=== PATIENT | female | born 1955 | race Caucasian/White ===

== ENCOUNTER 2016-07-25 10:53 | Inpatient (IN) | payer BC ==
[2016-07-25] MEDS ORDERED: Sodium Chloride 0.9% 10 ML Syringe FLUSH PRN (11:02)
[2016-07-25] MEDS ORDERED: Acetaminophen 325 MG Tab PO PRN (11:02)
[2016-07-25] MEDS ORDERED: Nitroglycerin 0.4 MG Tab.SL SL PRN (11:06)
[2016-07-25] MEDS ORDERED: methylPREDNISolone Sod Succ 125 MG in Sodium Chloride 0.9% 100 ML IV SCH (11:15)
[2016-07-25 11:36] LABS: BASOPHILS PERCENT AUTO 0.2 % (0.2-1.2); EOSINOPHILS PERCENT AUTO 0.3 % (0.0-4.0); HEMOGLOBIN 14.3 g/dL (12.0-16.0); LYMPHOCYTES PERCENT AUTO 11.1 % (25.0-50.0); MEAN CORPUSCULAR HEMOGLOBIN 29.2 pg (26.0-32.0); MEAN CORPUSCULAR HGB CONC 32.5 g/dL (32.0-36.0); MEAN CORPUSCULAR VOLUME 89.8 fL (78.0-93.0); MONOCYTES PERCENT AUTO 11.2 % (2.0-11.0); NEUTROPHILS PERCENT AUTO 77.2 % (50.0-80.0); RDW CV 16.5 % (10.0-15.0)
[2016-07-25] MEDS: Albuterol/Ipratropium 3.0-0.5 MG/3 ML Neb Soln NEB PRN ×3 (11:45→19:55)
[2016-07-25] MEDS: methylPREDNISolone Sodium Succinate 125 MG/2 ML SDV IVPUSH SCH ×2 (11:45→20:02)
[2016-07-25 12:06] LABS: A/G RATIO 0.93; ALBUMIN 3.7 g/dL (3.4-5.0); ALKALINE PHOSPHATASE 118 U/L (46-116); BILIRUBIN TOTAL 0.5 mg/dL (0.2-1.0); CALCIUM 8.5 mg/dL (8.5-10.1); CHLORIDE,CL 96 mmol/L (98-107); CORRECTED CALCIUM 8.74 mg/dL (8.5-10.1); CREATININE 0.7 mg/dL (0.55-1.02); ESTIMATED GFR > 60; GLUCOSE RANDOM 119 mg/dL (74-106)
[2016-07-25 12:08] LABS: CKMB 1.1 ng/mL (0.0-3.6)
--- NOTE | 2016-07-25 13:18 | PCM.HP ---
H&P History of Present Illness - General Date of Service: 07/25/16 Admit Problem/Dx: Admission Diagnosis/Problem Admission Diagnosis/Problem Congestive heart failure Source of Information: Patient History Limitations: Reports: No limitations - History of Present Illness Initial Comments - Free Text/Narative: 61 year old female presents to clinic with complaints of shortness of breath. States symptoms started 3 days ago - progressively worsening. Has a slight cough. Unaware of fevers but has been chilled. Cough is non-productive. Denies any edema. Onset of Symptoms: Reports: gradual Symptom Onset Date: 07/21/16 - Related Data Allergies/Adverse Reactions: Allergies Allergy/AdvReac Type Severity Reaction Status Date / Time codeine AdvReac Vomiting Verified 07/25/16 11:08 bandaids Allergy Rash Uncoded 07/25/16 11:08 Home Medications: Home Meds Albuterol [Ventolin HFA] 2 puff INH Q4HR PRN 08/16/13 [History] Furosemide 40 mg PO DAILY 08/16/13 [History] Potassium Chloride [Klor-Con 10] 10 meq PO DAILY 08/16/13 [History] Aspirin [Halfprin] 81 mg PO DAILY #1 tab.ec 08/20/13 [Rx] Budesonide [Pulmicort] 0.5 mg NEB BIDRT #60 neb 08/20/13 [Rx] Carvedilol 25 mg PO BID #1 08/20/13 [Rx] Simvastatin [Zocor] 40 mg PO BEDTIME #1 tablet 08/20/13 [Rx] FLUoxetine [PROzac] 40 mg PO DAILY 06/26/15 [History] Omeprazole [Prilosec] 20 mg PO DAILY 06/26/15 [History] Albuterol/Ipratropium [DuoNeb 3.0-0.5 MG/3 ML] 3 ml NEB Q4HRRT PRN 01/06/16 [ History] Lisinopril 40 mg PO DAILY 01/06/16 [History] Nitroglycerin [Nitrostat] 0.4 mg SL Q5M PRN 01/06/16 [History] Aclidinium [place] [Tudorza Pressair] 400 mcg IH BID 01/10/16 [History] Past Medical History HEENT History: Reports: None Cardiovascular History: Reports: CAD, Cardiomyopathy, Heart Failure, High cholesterol, Hypertension, [place] Respiratory History: Reports: COPD Other Respiratory History: pt uses home O2 at 1L [place] throughout day. 2L at night Gastrointestinal History: Reports: Other (see below) Other Gastrointestinal History: reports that she has been having bloody stools ( BRB) is scheduled for colonoscopy SundayJanuary 09 Genitourinary History: Reports: None [employer] History: Reports: None Musculoskeletal History: Reports: None Neurological History: Reports: None Psychiatric History: Reports: Depression Endocrine/Metabolic History: Reports: None Hematologic History: Other Hematologic History: hepatitis Immunologic History: Reports: None Oncologic (Cancer) History: Reports: None Dermatologic History: Reports: None - Infectious Disease History Infectious Disease History: Reports: Other (see below) Other Infectious Disease History: hx of hepatitis but does not know which one - Past Surgical History Head Surgeries/Procedures: Reports: None HEENT Surgical History: Reports: None Cardiovascular Surgical History: Reports: Other (see below) Other Cardiovascular Surgeries/Procedures: triple bipass 2004 Female Surgical History: Reports: Hysterectomy Endocrine Surgical History: Reports: None Neurological Surgical History: Reports: None Musculoskeletal Surgical History: Reports: None Oncologic Surgical History: Reports: None Dermatological Surgical History: Reports: None Social & Family History - Family History Family Medical History: Noncontributory - Tobacco Use Smoking Status *Q: Current Every Day Smoker Years of Tobacco use: 48 Packs/Tins Daily: 1 Second Hand Smoke Exposure: Yes - Alcohol Use Days Per Week of Alcohol Use: 7 Number of Drinks Per Day: 5 Total Drinks Per Week: 35 - Recreational Drug Use Recreational Drug Use: No - Living Situation & Occupation Living situation: Reports: Occupation: employed H&P Review of Systems - Review of Systems: Review Of Systems: See Below General: Reports: chills, weakness HEENT: Reports: no symptoms Pulmonary: Reports: shortness of breath, cough Cardiovascular: Reports: dyspnea on exertion. Denies: chest pain, syncope Gastrointestinal: Reports: No symptoms Genitourinary: Reports: no symptoms Musculoskeletal: Reports: no symptoms Skin: Reports: no symptoms Psychiatric: Reports: anxiety Neurological: Reports: no symptoms Hematologic/Lymphatic: Reports: no symptoms Immunologic: Reports: no symptoms Exam - Exam Exam: See Below - Vital Signs Vital Signs: Last Vital Signs Temp 36.3 C 07/25/16 11:07 Pulse 70 07/25/16 11:07 Resp 20 01/03/17 11:07 BP 127/73 07/25/16 11:07 Pulse Ox 94 L 07/25/16 11:07 Weight: 81.247 kg - Exam Quality Assessment: supplemental oxygen General: alert, oriented HEENT: Conjunctiva clear, EOMI Neck: supple Lungs: Decreased breath sounds, Rales, Wheezing Cardiovascular: regular rate, regular rhythm Abdomen: normal bowel sounds (Female) Exam: Deferred Extremities: edema (trace) Skin: dry Neuro Extensive - Mental Status: alert, oriented x3 Neuro Extensive - Motor, Sensory, Reflexes: CN II-XII intact Psychiatric: alert - Patient Data Lab Results last 24 hrs: Laboratory Results - last 24 hr 07/25/16 07/25/16 Range/Units 11:29 11:29 WBC 8.9 (4.0-10.0) x10^3/uL RBC 4.90 (4.00-5.50) x10^6/uL Hgb 14.3 (12.0-16.0) g/dL Hct 44.0 (33.0-47.0) % MCV 89.8 (78.0-93.0) fL MCH 29.2 (26.0-32.0) pg MCHC 32.5 (32.0-36.0) g/dL RDW Coeff of Cyndie 16.5 H (10.0-15.0) % Plt Count 207 (130-400) x10^3/uL Neut % (Auto) 77.2 (50.0-80.0) % Lymph % (Auto) 11.1 L (25.0-50.0) % [place] % (Auto) 11.2 H (2.0-11.0) % Eos % (Auto) 0.3 (0.0-4.0) % Baso % (Auto) 0.2 (0.2-1.2) % Sodium 138 (136-145) mmol/L Potassium 3.7 (3.5-5.1) mmol/L Chloride 96 L (98-107) mmol/L Carbon Dioxide 35 H (21-32) mmol/L BUN 6 L (7-18) mg/dL Creatinine 0.7 (0.55-1.02) mg/dL Est Cr Clr Drug Dosing 70.70 mL/min Estimated GFR (MDRD) > 60 Glucose 119 H (74-106) mg/dL Calcium 8.5 (8.5-10.1) mg/dL Corrected Calcium 8.74 (8.5-10.1) mg/dL Total Bilirubin 0.5 (0.2-1.0) mg/dL AST 21 (15-37) U/L ALT 28 (14-59) U/L Alkaline Phosphatase 118 H (46-116) U/L Creatine Kinase 84 (26-192) U/L Creatine Kinase Index 1.3 (0.0-4.0) % CK-MB (CK-2) 1.1 (0.0-3.6) ng/mL Total Protein 7.7 (6.4-8.2) g/dL Albumin 3.7 (3.4-5.0) g/dL Globulin 4.0 Albumin/Globulin Ratio 0.93 Result Diagrams: 07/25/16 11:29 07/25/16 11:29 *Q Meaningful Use (ADM) - VTE *Q VTE Criteria *Q: - Stroke *Q Stroke Criteria *Q: - AMI *Q AMI Criteria *Q: - Problem List (1) Weakness SNOMED Code(s): 47696086 ICD Code: R53.1 - WEAKNESS Status: Acute Current Visit: No (2) Congestive heart failure due to left ventricular systolic dysfunction SNOMED Code(s): 553465576 ICD Code: I50.20 - UNSPECIFIED SYSTOLIC (CONGESTIVE) HEART FAILURE Status: Acute Priority: High Current Visit: No (3) Depression SNOMED Code(s): 09772405 ICD Code: F32.9 - MAJOR DEPRESSIVE DISORDER, SINGLE EPISODE, UNSPECIFIED Status: Chronic Current Visit: No (4) HTN, Benign hypertension SNOMED Code(s): 63934479 ICD Code: I10 - ESSENTIAL (PRIMARY) HYPERTENSION Status: Chronic Current Visit: No Problem List Initiated/Reviewed/Updated: Yes Orders Last 24hrs: Active Orders 24 hr Category Date Time Status Admission Status [Patient Status] [ADT] Routine ADT 07/25/16 10:58 Active Intake and Output [RC] QSHIFT Care 07/25/16 11:03 Ordered Oxygen Therapy [RC] PRN Care 07/25/16 11:02 Ordered Pulse Oximetry [RC] PRN Care 07/25/16 11:04 Ordered VTE/DVT Education [RC] PER UNIT ROUTINE Care 07/25/16 11:02 Ordered Vital Signs [RC] Q4H Care 07/25/16 11:02 Ordered 2 Gram Sodium Diet [DIET] Diet 07/25/16 Lunch Ordered Acetaminophen [Tylenol] Med 07/25/16 11:02 Ordered 650 mg PO Q4H PRN Aclidinium [place] [Tudorza Pressair] Med 07/25/16 20:00 Ordered 400 mcg IH BID Albuterol/Ipratropium [DuoNeb 3.0-0.5 MG/3 ML] Med 07/25/16 11:06 Ordered 3 ml NEB Q4HRRT PRN Aspirin [Halfprin] Med 07/26/16 08:00 Ordered 81 mg PO DAILY Budesonide [Pulmicort] Med 07/25/16 20:00 Ordered 0.5 mg NEB BIDRT Carvedilol [Coreg] Med 07/25/16 20:00 Ordered 25 mg PO BID FLUoxetine [PROzac] Med 07/26/16 08:00 Ordered 40 mg PO DAILY Furosemide [Lasix] Med 07/25/16 20:00 Ordered 40 mg IVPUSH Q12HR LORazepam [Ativan] Med 07/25/16 20:00 Ordered 3 mg PO BEDTIME Lisinopril [Lisinopril] Med 07/26/16 08:00 Ordered 20 mg PO DAILY Nitroglycerin [Nitrostat] Med 07/25/16 11:06 Ordered 0.4 mg SL Q5M PRN Omeprazole Med 07/26/16 08:00 Ordered 20 mg PO DAILY Simvastatin [Zocor] Med 07/25/16 20:00 Ordered 40 mg PO BEDTIME Sodium Chloride 0.9% [Saline Flush] Med 07/25/16 11:02 Ordered 10 ml FLUSH ASDIRECTED PRN methylPREDNISolone Sod Succ [Solu-MEDROL] Med 07/25/16 12:00 Active 125 mg IVPUSH Q8H Saline Lock Insert [OM.PC] Routine Oth 07/25/16 11:02 Ordered Resuscitation Status Routine Resus Stat 07/25/16 11:02 Ordered Medication Orders Acetaminophen (Tylenol) 650 mg PO Q4H PRN PRN Reason: Pain (Mild 1-3)/fever Albuterol/Ipratropium (Duoneb 3.0-0.5 Mg/3 Ml) 3 ml NEB Q4HRRT PRN PRN Reason: Shortness of Breath Last Admin: 07/25/16 11:45 Dose: 3 ml Aspirin (Halfprin) 81 mg PO DAILY [facility] Budesonide (Pulmicort) 0.5 mg NEB BIDRT [facility] Carvedilol (Coreg) 25 mg PO BID [facility] Fluoxetine HCl (Prozac) 40 mg PO DAILY [facility] Furosemide (Lasix) 40 mg IVPUSH Q12HR [facility] Lisinopril (Prinivil) 20 mg PO DAILY [facility] Lorazepam (Ativan) 3 mg PO BEDTIME [facility] Methylprednisolone Sodium Succinate (Solu-Medrol) 125 mg IVPUSH Q8H [facility] Last Admin: 07/25/16 11:45 Dose: 125 mg Nitroglycerin (Nitrostat) 0.4 mg SL Q5M PRN PRN Reason: Chest Pain Aclidinium [place] [ Tudorza Pressair] 400 Mcg 0 mcg IH BID [facility] Omeprazole (Omeprazole) 20 mg PO DAILY@0700 [facility] Simvastatin (Zocor) 40 mg PO BEDTIME [facility] Sodium Chloride (Saline Flush) 10 ml FLUSH ASDIRECTED PRN PRN Reason: Keep Vein Open Assessment/Plan Comment:: 1. Acute exacerbation of chronic systolic heart failure 2. Severe COPD - Oxygen dependent 3. Weakness 4. Anxiety with chronic insomnia Plan: Pt will be admitted to acute care. IV diuretics ordered. IV steroids ordered as well. Code 1. Therapy will be consulted
[2016-07-25] MEDS: Nicotine 21 MG/24 Hr Patch TRDERM SCH (17:51)
[2016-07-25] MEDS: Simvastatin 40 MG Tab PO SCH (20:01)
[2016-07-25] MEDS: Carvedilol 25 MG Tab PO SCH (20:01)
[2016-07-25] MEDS: Furosemide 40 MG/4 ML VIAL IVPUSH SCH (20:02)
[2016-07-25] MEDS: Budesonide 0.5 MG/2 ML Neb Susp NEB SCH (20:02)
[2016-07-25] MEDS: Aclidinium Bromide [Tudorza Pressair] 400 MCG IH SCH (20:03)
[2016-07-25] MEDS: LORazepam 1 MG Tab PO SCH (20:03)
[2016-07-26] MEDS: Albuterol/Ipratropium 3.0-0.5 MG/3 ML Neb Soln NEB PRN ×4 (01:56→14:34)
[2016-07-26] MEDS: methylPREDNISolone Sodium Succinate 125 MG/2 ML SDV IVPUSH SCH ×3 (04:21→19:46)
[2016-07-26] MEDS: Budesonide 0.5 MG/2 ML Neb Susp NEB SCH ×2 (07:11→19:46)
[2016-07-26] MEDS: Omeprazole 20 MG Cap.CR PO SCH (07:36)
[2016-07-26] MEDS: Furosemide 40 MG/4 ML VIAL IVPUSH SCH (08:07)
[2016-07-26] MEDS: FLUoxetine 20 MG Cap PO SCH (08:08)
[2016-07-26] MEDS: Nicotine 21 MG/24 Hr Patch TRDERM SCH (08:08)
[2016-07-26] MEDS: Lisinopril 20 MG Tab PO SCH (08:09)
[2016-07-26] MEDS: Aspirin 81 MG Tab.EC PO SCH (08:09)
[2016-07-26] MEDS: Carvedilol 25 MG Tab PO SCH ×2 (08:09→19:38)
[2016-07-26] MEDS: Aclidinium Bromide [Tudorza Pressair] 400 MCG IH SCH ×2 (08:10→19:37)
[2016-07-26] MEDS: Furosemide 40 MG Tab PO SCH ×2 (08:12→16:39)
--- NOTE | 2016-07-26 08:15 | PCM.PN ---
- General Info Date of Service: 07/26/16 Subjective Update: 61 year old female on day 1 of hospitalization for acute on chronic systolic CHF. States she is feeling considerably better today. Was able to rest last night. Admission weight not documented in chart, however patient states her weight is down 6 lbs. - Review of Systems General: Reports: weakness HEENT: Reports: no symptoms Pulmonary: Reports: shortness of breath, cough Cardiovascular: Denies: chest pain Gastrointestinal: Denies: Abdominal pain Genitourinary: Denies: dysuria - Patient Data Vitals - most recent: Last Vital Signs Temp 36.9 C 07/26/16 05:41 Pulse 74 07/26/16 05:41 Resp 20 07/26/16 05:41 BP 124/79 07/26/16 05:41 Pulse Ox 92 L 07/26/16 08:00 Weight - most recent: 78.471 kg I&O - last 24 hours: Intake & Output 07/25/16 07/26/16 07/26/16 22:59 06:59 14:59 Intake Total 555 550 Output Total 800 1600 Balance -245 -1050 Lab Results last 24 hrs: Laboratory Results - last 24 hr 07/25/16 07/25/16 Range/Units 11:29 11:29 WBC 8.9 (4.0-10.0) x10^3/uL RBC 4.90 (4.00-5.50) x10^6/uL Hgb 14.3 (12.0-16.0) g/dL Hct 44.0 (33.0-47.0) % MCV 89.8 (78.0-93.0) fL MCH 29.2 (26.0-32.0) pg MCHC 32.5 (32.0-36.0) g/dL RDW Coeff of Cyndie 16.5 H (10.0-15.0) % Plt Count 207 (130-400) x10^3/uL Neut % (Auto) 77.2 (50.0-80.0) % Lymph % (Auto) 11.1 L (25.0-50.0) % [place] % (Auto) 11.2 H (2.0-11.0) % Eos % (Auto) 0.3 (0.0-4.0) % Baso % (Auto) 0.2 (0.2-1.2) % Sodium 138 (136-145) mmol/L Potassium 3.7 (3.5-5.1) mmol/L Chloride 96 L (98-107) mmol/L Carbon Dioxide 35 H (21-32) mmol/L BUN 6 L (7-18) mg/dL Creatinine 0.7 (0.55-1.02) mg/dL Est Cr Clr Drug Dosing 70.70 mL/min Estimated GFR (MDRD) > 60 Glucose 119 H (74-106) mg/dL Calcium 8.5 (8.5-10.1) mg/dL Corrected Calcium 8.74 (8.5-10.1) mg/dL Total Bilirubin 0.5 (0.2-1.0) mg/dL AST 21 (15-37) U/L ALT 28 (14-59) U/L Alkaline Phosphatase 118 H (46-116) U/L Creatine Kinase 84 (26-192) U/L Creatine Kinase Index 1.3 (0.0-4.0) % CK-MB (CK-2) 1.1 (0.0-3.6) ng/mL Total Protein 7.7 (6.4-8.2) g/dL Albumin 3.7 (3.4-5.0) g/dL Globulin 4.0 Albumin/Globulin Ratio 0.93 Med Orders - Current: Current Medications Acetaminophen (Tylenol) 650 mg PO Q4H PRN PRN Reason: Pain (Mild 1-3)/fever Albuterol/Ipratropium (Duoneb 3.0-0.5 Mg/3 Ml) 3 ml NEB Q4HRRT PRN PRN Reason: Shortness of Breath Last Admin: 07/26/16 07:12 Dose: 3 ml Aspirin (Halfprin) 81 mg PO DAILY [facility] Budesonide (Pulmicort) 0.5 mg NEB BIDRT [facility] Last Admin: 07/26/16 07:11 Dose: 0.5 mg Carvedilol (Coreg) 25 mg PO BID [facility] Last Admin: 07/25/16 20:01 Dose: 25 mg Fluoxetine HCl (Prozac) 40 mg PO DAILY [facility] Furosemide (Lasix) 40 mg PO BID [facility] Lisinopril (Prinivil) 20 mg PO DAILY [facility] Lorazepam (Ativan) 3 mg PO BEDTIME [facility] Last Admin: 07/25/16 20:03 Dose: 3 mg Methylprednisolone Sodium Succinate (Solu-Medrol) 125 mg IVPUSH Q8H [facility] Last Admin: 07/26/16 04:21 Dose: 125 mg Nicotine (Habitrol) 21 mg TRDERM DAILY [facility] Last Admin: 07/25/16 17:51 Dose: 21 mg Nitroglycerin (Nitrostat) 0.4 mg SL Q5M PRN PRN Reason: Chest Pain Aclidinium [place] [ Tudorza Pressair] 400 Mcg 0 mcg IH BID [facility] Last Admin: 07/25/16 20:03 Dose: 400 mcg Omeprazole (Omeprazole) 20 mg PO DAILY@0700 [facility] Last Admin: 07/26/16 07:36 Dose: 20 mg Simvastatin (Zocor) 40 mg PO BEDTIME [facility] Last Admin: 07/25/16 20:01 Dose: 40 mg Sodium Chloride (Saline Flush) 10 ml FLUSH ASDIRECTED PRN PRN Reason: Keep Vein Open Discontinued Medications Furosemide (Lasix) 40 mg IVPUSH Q12HR [facility] Last Admin: 07/25/16 20:02 Dose: 40 mg - Exam Quality Assessment: supplemental oxygen General: alert, oriented, cooperative HEENT: Pupils equal Neck: supple Lungs: Rales Cardiovascular: regular rate, regular rhythm Abdomen: bowel sounds present Extremities: No: edema - Problem List & Annotations (1) Weakness SNOMED Code(s): 77143214 Code(s): R53.1 - WEAKNESS Status: Acute Current Visit: No (2) Congestive heart failure due to left ventricular systolic dysfunction SNOMED Code(s): 159620268 Code(s): I50.20 - UNSPECIFIED SYSTOLIC (CONGESTIVE) HEART FAILURE Status: Acute Priority: High Current Visit: No Annotation/Comment:: 07/26: Improving: Wieght down, edema down (3) Depression SNOMED Code(s): 85071213 Code(s): F32.9 - MAJOR DEPRESSIVE DISORDER, SINGLE EPISODE, UNSPECIFIED Status: Chronic Current Visit: No (4) HTN, Benign hypertension SNOMED Code(s): 06456560 Code(s): I10 - ESSENTIAL (PRIMARY) HYPERTENSION Status: Chronic Current Visit: No - Problem List Review Problem List Initiated/Reviewed/Updated: Yes - My Orders Last 24 Hours: My Active Orders 07/25/16 10:58 Admission Status [Patient Status] [ADT] Routine 07/25/16 11:02 Oxygen Therapy [RC] .PRN VTE/DVT Education [RC] .PRN Vital Signs [RC] 02,06,10,14,18,22 Acetaminophen [Tylenol] 650 mg PO Q4H PRN Sodium Chloride 0.9% [Saline Flush] 10 ml FLUSH ASDIRECTED PRN Saline Lock Insert [OM.PC] Routine Resuscitation Status Routine 07/25/16 11:03 Intake and Output [RC] ,18 07/25/16 11:04 Pulse Oximetry [RC] .PRN 07/25/16 11:06 Albuterol/Ipratropium [DuoNeb 3.0-0.5 MG/3 ML] 3 ml NEB Q4HRRT PRN Nitroglycerin [Nitrostat] 0.4 mg SL Q5M PRN 07/25/16 12:00 methylPREDNISolone Sod Succ [Solu-MEDROL] 125 mg IVPUSH Q8H 07/25/16 17:45 Nicotine [Habitrol] 21 mg TRDERM DAILY 07/25/16 20:00 Aclidinium [place] [Tudorza Pressair] 0 mcg IH BID Budesonide [Pulmicort] 0.5 mg NEB BIDRT Carvedilol [Coreg] 25 mg PO BID LORazepam [Ativan] 3 mg PO BEDTIME Simvastatin [Zocor] 40 mg PO BEDTIME 07/25/16 Lunch 2 Gram Sodium Diet [DIET] 07/26/16 07:00 Omeprazole 20 mg PO DAILY@0700 07/26/16 08:00 Aspirin [Halfprin] 81 mg PO DAILY FLUoxetine [PROzac] 40 mg PO DAILY Lisinopril [Prinivil] 20 mg PO DAILY 07/26/16 08:02 BASIC METABOLIC PANEL,BMP [CHEM] DAILY 07/26/16 20:00 Furosemide [Lasix] 40 mg PO BID 07/27/16 08:02 BASIC METABOLIC PANEL,BMP [CHEM] DAILY 07/28/16 08:02 BASIC METABOLIC PANEL,BMP [CHEM] DAILY - Assessment Assessment:: 1. Acute on chronic systolic CHF 2. Severe COPD 3. Weakness 4. Known CAD - Plan Plan:: 1. IV lasix will be discontinued and switched to that of oral 2. Labs will be ordered 3. Physical therapy consulted.
[2016-07-26 08:39] LABS: CALCIUM 8.7 mg/dL (8.5-10.1); EST CRCL DRUG DOSING (CG) 49.49 mL/min
[2016-07-26 12:15] LABS: B-TYPE NATRIURETIC PEPTIDE,BNP 1466 pg/mL (<=125); TROPONIN I < 0.017 ng/mL (<=0.056)
[2016-07-26] MEDS ORDERED: LORazepam 2 MG/ML MDV IVPUSH STA (14:33)
[2016-07-26] MEDS: LORazepam 1 MG Tab PO SCH (19:38)
[2016-07-26] MEDS: Simvastatin 40 MG Tab PO SCH (19:46)
[2016-07-27] MEDS: Albuterol/Ipratropium 3.0-0.5 MG/3 ML Neb Soln NEB PRN ×4 (00:39→08:40)
[2016-07-27] MEDS: LORazepam 2 MG/ML MDV IVPUSH PRN ×2 (00:39→08:41)
[2016-07-27] MEDS: methylPREDNISolone Sodium Succinate 125 MG/2 ML SDV IVPUSH SCH (04:08)
[2016-07-27] MEDS: Omeprazole 20 MG Cap.CR PO SCH ×2 (05:40→07:40)
[2016-07-27] MEDS: Lisinopril 20 MG Tab PO SCH ×2 (05:51→07:42)
[2016-07-27 05:52] VITALS: BP 180/90
[2016-07-27] MEDS: Carvedilol 25 MG Tab PO SCH ×2 (05:52→07:41)
[2016-07-27] MEDS: Budesonide 0.5 MG/2 ML Neb Susp NEB SCH (07:08)
[2016-07-27 07:12] LABS: CALCIUM 8.1 mg/dL (8.5-10.1); CHLORIDE,CL 95 mmol/L (98-107); CREATININE 0.8 mg/dL (0.55-1.02); EST CRCL DRUG DOSING (CG) 61.86 mL/min; ESTIMATED GFR > 60; GLUCOSE RANDOM 177 mg/dL (74-106)
[2016-07-27 07:53] LABS: HCO3 ARTERIAL,ISTAT 43 mmol/L (22-26); O2 SATURATION ARTERIAL,ISTAT 94 % (95-98); PCO2 ARTERIAL,ISTAT 99 mmHG (35-45); PH ARTERIAL,ISTAT 7.247 (7.35-7.45); PO2 ARTERIAL,ISTAT 89 mmHG (80-105); TCO2 ARTERIAL,ISTAT 46 mmol/L (23-27)
--- NOTE | 2016-07-27 08:34 | PCM.DCSUM1 ---
Discharge Summary - Hospital Course Free Text/Narrative:: 61 year old female admitted through clinic on 07/25/15 with complaints of SOB. Noted to have acute exacerbation of chronic systolic CHF. Also with severe COPD - on home O2 at 2-4 L/NC - Discharge Data Discharge Date: 07/27/16 Discharge Disposition: DC/Tfer to Acute Hospital 02 Condition: Serious - Discharge Diagnosis/Problem(s) (1) Acute respiratory failure with hypercapnia SNOMED Code(s): 376402168 ICD Code: J96.02 - ACUTE RESPIRATORY FAILURE WITH HYPERCAPNIA Status: Acute Current Visit: Yes (2) Weakness SNOMED Code(s): 91288028 ICD Code: R53.1 - WEAKNESS Status: Acute Current Visit: No (3) Congestive heart failure due to left ventricular systolic dysfunction SNOMED Code(s): 815243205 ICD Code: I50.20 - UNSPECIFIED SYSTOLIC (CONGESTIVE) HEART FAILURE Status: Acute Priority: High Current Visit: No Problem Details: 07/26: Improving: Wieght down, edema down (4) Depression SNOMED Code(s): 34413848 ICD Code: F32.9 - MAJOR DEPRESSIVE DISORDER, SINGLE EPISODE, UNSPECIFIED Status: Chronic Current Visit: No (5) HTN, Benign hypertension SNOMED Code(s): 30884579 ICD Code: I10 - ESSENTIAL (PRIMARY) HYPERTENSION Status: Chronic Current Visit: No - Patient Summary/Data Consults: Consultations 07/26/16 08:15 Consult to Physical Therapy [PT Evaluation and Treatment] [CONS] Routine Hospital Course: Patient was admitted to the hospital. She requests to be a code level I. IV diuretics were initiated. Pt tolerated well - diuresed well. On day #1 of hospitalization she was down 6 lb. She was changed to oral diuretics and continued to diurese well. On day #2 of hospitalization, her output was 1200 ahead of input. Patient was started on IV solumedrol on admission for severe COPD. This has been continued as has her routine nebulizers. She is on DuoNebs, budesonide and Tudorza. Oxygen saturations have been stable -above 92%. In the later afternoon of 07/26 - pt began reporting increased anxiety. States she felt short of breath. Vitals remained stable. She was treated with prn neb and ativan and was able to sleep throughout the night. At 6 AM she again stated she was not able to catch her breath. Nebulizers were repeated. She was unable to catch her breath. ABG's were ordered - noted to be in acute hypercapnic respiratory failure. EKG was repeated with no change. CXR repeated. Heart sounds are regular Lungs: wheezing with poor air movement Bipap initiated Arrangements made to transfer her to tertiary care facility - [facility] in [place]. Dr. Shultz agrees to accept patient in transfer. is here and updated on condition and treatment plan. She will go via ALS crew - Discharge Plan Home Medications: Home Meds Albuterol [Ventolin HFA] 2 puff INH Q4HR PRN 08/16/13 [History] Furosemide 40 mg PO DAILY 08/16/13 [History] Potassium Chloride [Klor-Con 10] 10 meq PO DAILY 08/16/13 [History] Aspirin [Halfprin] 81 mg PO DAILY #1 tab.ec 08/20/13 [Rx] Carvedilol 25 mg PO BID #1 08/20/13 [Rx] Albuterol/Ipratropium [DuoNeb 3.0-0.5 MG/3 ML] 3 ml NEB Q4HRRT PRN 01/06/16 [ History] Lisinopril 20 mg PO DAILY 01/06/16 [History] Nitroglycerin [Nitrostat] 0.4 mg SL Q5M PRN 01/06/16 [History] Acetaminophen [Tylenol] 650 mg PO Q4H PRN #0 tablet 07/27/16 [Rx] Aclidinium [place] [Tudorza Pressair] 0 mcg IH BID 07/27/16 [Rx] Budesonide [Pulmicort] 0.5 mg NEB BIDRT neb 07/27/16 [Rx] FLUoxetine [PROzac] 40 mg PO DAILY cap 07/27/16 [Rx] Furosemide [Lasix] 40 mg PO BIDDIURETIC tablet 07/27/16 [Rx] LORazepam [Ativan] 0.5 mg IVPUSH Q12H PRN #0 vial 07/27/16 [Rx] LORazepam [Ativan] 3 mg PO BEDTIME tablet 07/27/16 [Rx] Nicotine [Habitrol] 21 mg TRDERM DAILY patch 07/27/16 [Rx] Omeprazole 20 mg PO DAILY@0700 cap.cr 07/27/16 [Rx] Simvastatin [Zocor] 40 mg PO BEDTIME tablet 07/27/16 [Rx] methylPREDNISolone Sod Succ [Solu-MEDROL] 125 mg IVPUSH Q8H sdv 07/27/16 [Rx] Forms: Interfacility Transfer EMTALA - Discharge Summary/Plan Comment DC Time >30 min.: No Discharge Summary/Plan Comment: Will transfer to [facility] via ALS crew. - General Info Date of Service: 07/27/16 Functional Status: Reports: pain controlled - Review of Systems General: Reports: weakness Pulmonary: Reports: shortness of breath. Denies: cough Cardiovascular: Denies: chest pain - Patient Data Vitals - Most Recent: Last Vital Signs Temp 36.3 C 07/27/16 06:00 Pulse 85 07/27/16 07:41 Resp 20 07/27/16 06:00 BP 180/90 H 07/27/16 07:42 Pulse Ox 90 L 07/27/16 07:14 Weight - Most Recent: 78.471 kg I&O - Last 24 hours: Intake & Output 07/26/16 07/27/16 07/27/16 22:59 06:59 14:59 Intake Total 650 Output Total 900 1300 Balance -250 -1300 Lab Results - Last 24 hrs: Laboratory Results - last 24 hr 07/26/16 07/26/16 07/27/16 Range/Units 08:10 11:40 06:29 D-Dimer, Quantitative (<=0.58) mg/LFEU POC ABG pH (7.35-7.45) POC ABG pCO2 (35-45) mmHG POC ABG pO2 (80-105) mmHG POC ABG HCO3 (22-26) mmol/L POC ABG Total CO2 (23-27) mmol/L POC ABG O2 Sat (95-98) % POC ABG Base Excess (-2-3) mmol/L POC FiO2 Sodium 137 139 (136-145) mmol/L Potassium 3.6 3.6 (3.5-5.1) mmol/L Chloride 95 L 95 L (98-107) mmol/L Carbon Dioxide 33 H 39 H (21-32) mmol/L BUN 11 19 H (7-18) mg/dL Creatinine 1.0 0.8 (0.55-1.02) mg/dL Est Cr Clr Drug Dosing 49.49 61.86 mL/min Estimated GFR (MDRD) 57 > 60 Glucose 221 H 177 H (74-106) mg/dL Calcium 8.7 8.1 L (8.5-10.1) mg/dL Creatine Kinase 63 (26-192) U/L Troponin I < 0.017 (<=0.056) ng/mL B-Natriuretic Peptide 1466 H (<=125) pg/mL POC Result Comm 07/27/16 07/27/16 Range/Units 06:29 07:46 D-Dimer, Quantitative 0.44 (<=0.58) mg/LFEU POC ABG pH 7.247 L* (7.35-7.45) POC ABG pCO2 99 H* (35-45) mmHG POC ABG pO2 89 (80-105) mmHG POC ABG HCO3 43 H (22-26) mmol/L POC ABG Total CO2 46 H (23-27) mmol/L POC ABG O2 Sat 94 L (95-98) % POC ABG Base Excess 16 H (-2-3) mmol/L POC FiO2 0.32 Sodium (136-145) mmol/L Potassium (3.5-5.1) mmol/L Chloride (98-107) mmol/L Carbon Dioxide (21-32) mmol/L BUN (7-18) mg/dL Creatinine (0.55-1.02) mg/dL Est Cr Clr Drug Dosing mL/min Estimated GFR (MDRD) Glucose (74-106) mg/dL Calcium (8.5-10.1) mg/dL Creatine Kinase (26-192) U/L Troponin I (<=0.056) ng/mL B-Natriuretic Peptide (<=125) pg/mL POC Result Comm Called critical res Med Orders - Current: Current Medications Acetaminophen (Tylenol) 650 mg PO Q4H PRN PRN Reason: Pain (Mild 1-3)/fever Last Admin: 07/27/16 05:40 Dose: 650 mg Albuterol/Ipratropium (Duoneb 3.0-0.5 Mg/3 Ml) 3 ml NEB Q4HRRT PRN PRN Reason: Shortness of Breath Last Admin: 07/27/16 07:36 Dose: 3 ml Aspirin (Halfprin) 81 mg PO DAILY SERVANDO Last Admin: 07/26/16 08:09 Dose: 81 mg Budesonide (Pulmicort) 0.5 mg NEB BIDRT [facility] Last Admin: 07/27/16 07:08 Dose: 0.5 mg Carvedilol (Coreg) 25 mg PO BID [facility] Last Admin: 07/27/16 07:41 Dose: Not Given Fluoxetine HCl (Prozac) 40 mg PO DAILY [facility] Last Admin: 07/26/16 08:08 Dose: 40 mg Furosemide (Lasix) 40 mg PO BIDDIURETIC [facility] Last Admin: 07/26/16 16:39 Dose: 40 mg Lisinopril (Prinivil) 20 mg PO DAILY [facility] Last Admin: 07/27/16 07:42 Dose: Not Given Lorazepam (Ativan) 3 mg PO BEDTIME [facility] Last Admin: 07/26/16 19:38 Dose: 3 mg Lorazepam (Ativan) 0.5 mg IVPUSH Q12H PRN PRN Reason: Anxiety Last Admin: 07/27/16 00:39 Dose: 0.5 mg Methylprednisolone Sodium Succinate (Solu-Medrol) 125 mg IVPUSH Q8H [facility] Last Admin: 07/27/16 04:08 Dose: 125 mg Nicotine (Habitrol) 21 mg TRDERM DAILY [facility] Last Admin: 07/26/16 08:08 Dose: 21 mg Nitroglycerin (Nitrostat) 0.4 mg SL Q5M PRN PRN Reason: Chest Pain Last Admin: 07/26/16 11:23 Dose: 0.4 mg Aclidinium [place] [ Tudorza Pressair] 400 Mcg 0 mcg IH BID [facility] Last Admin: 07/26/16 19:37 Dose: 400 mcg Omeprazole (Omeprazole) 20 mg PO DAILY@0700 [facility] Last Admin: 07/27/16 07:40 Dose: Not Given Simvastatin (Zocor) 40 mg PO BEDTIME [facility] Last Admin: 07/26/16 19:46 Dose: 40 mg Sodium Chloride (Saline Flush) 10 ml FLUSH ASDIRECTED PRN PRN Reason: Keep Vein Open Discontinued Medications Furosemide (Lasix) 40 mg IVPUSH Q12HR [facility] Last Admin: 07/26/16 08:07 Dose: 40 mg Lorazepam (Ativan) 0.5 mg IVPUSH NOW STA Stop: 07/26/16 14:34 Last Admin: 07/26/16 14:50 Dose: 0.5 mg - Exam Quality Assessment: Reports: supplemental oxygen General: Reports: alert, moderate distress HEENT: Reports: Pupils equal, Pupils reactive Lungs: Reports: Decreased breath sounds, Stridor, Wheezing Cardiovascular: Reports: regular rate Extremities: Reports: no edema Skin: Reports: moist Psy/Mental Status: Reports: alert, anxious *Q Meaningful Use (DIS) - VTE *Q VTE Criteria *Q: - Stroke *Q Stroke Criteria *Q: - AMI *Q AMI Criteria *Q:
[2016-07-27] MEDS: Aclidinium Bromide [Tudorza Pressair] 400 MCG IH SCH (08:50)
[2016-07-27] MEDS: Nicotine 21 MG/24 Hr Patch TRDERM SCH (08:50)
[2016-07-27] MEDS: Furosemide 40 MG Tab PO SCH (08:51)
[2016-07-27] MEDS: FLUoxetine 20 MG Cap PO SCH (08:51)
[2016-07-27] MEDS: Aspirin 81 MG Tab.EC PO SCH (08:51)
== END 2016-07-27 08:50 | disposition short-term general hospital (02) | DRG 194 ==
LOC: VM.MS 10:58
PROVIDERS: ADMIT Family Medicine; ATTEND Family Medicine
DX: I50.23 Acute on chronic systolic (congestive) heart failure (principal); Z79.82 Long term (current) use of aspirin; I25.10 Atherosclerotic heart disease of native coronary artery without angina pectoris; I42.9 Cardiomyopathy, unspecified; E78.00 Pure hypercholesterolemia, unspecified; I10 Essential (primary) hypertension; J44.9 Chronic obstructive pulmonary disease, unspecified; I25.2 Old myocardial infarction; F17.210 Nicotine dependence, cigarettes, uncomplicated; R53.1 Weakness; F41.8 Other specified anxiety disorders; F51.04 Psychophysiologic insomnia; J96.02 Acute respiratory failure with hypercapnia
CPT/HCPCS: 36415; 36600; 71010; 80048; 80053; 82550; 82553; 82803; 83880; 84484; 85025; 85379; 93005; 94640; 94660; 94760; A9270-GY; J1940; J2060; J2930

== ENCOUNTER 2017-04-25 12:17 | Inpatient (IN) | payer BC ==
[2017-04-25] MEDS ORDERED: Acetaminophen/HYDROcodone 325-5 MG Tab PO PRN (13:05)
[2017-04-25] MEDS ORDERED: Acetaminophen 325 MG Tab PO PRN (13:05)
[2017-04-25] MEDS ORDERED: LORazepam 1 MG Tab PO PRN (13:10)
[2017-04-25] MEDS ORDERED: Nitroglycerin 0.4 MG Tab.SL SL PRN (13:10)
[2017-04-25] MEDS ORDERED: Nicotine 21 MG/24 Hr Patch TRDERM SCH (13:15)
[2017-04-25] MEDS: Sodium Chloride 0.9% 1,000 ML IV SCH ×2 (13:40→20:19)
[2017-04-25] MEDS ORDERED: FLU Vacc QS 2017-18 (36mos UP)/PF 60 MCG/0.5 ML Syringe IM ONE (13:45)
[2017-04-25] MEDS: Nicotine 21 MG/24 Hr Patch TRDERM SCH (13:51)
[2017-04-25] MEDS: Potassium Chloride 20 MEQ in Premix Bag 1 BAG IV SCH ×3 (13:51→19:46)
[2017-04-25] MEDS: traMADol 50 MG Tab PO PRN (14:05)
--- NOTE | 2017-04-25 14:08 | PCM.HP ---
H&P History of Present Illness - General Date of Service: 04/25/17 Admit Problem/Dx: Admission Diagnosis/Problem Admission Diagnosis/Problem Electrolyte imbalance 61-year-old female admitted through the clinic with complaints of weakness. She sustained a right humerus fracture 1 week ago after she fell. She admits that she was intoxicated at the time of her fall. She states that she has not had any alcohol since that time. She was treated for hyponatremia last week as an out-patient. Her weakness has persisted. She did fall again at home last night. She denies any further injuries. Patient initially presented to the clinic for evaluation. She was noted to be hypotensive. Lab work was drawn and IV therapy was initiated. Lab called with a critical potassium level of 2.9. Subsequently arrangements were made for admission for inpatient therapy. Source of Information: Patient - History of Present Illness Onset of Symptoms: Reports: Sudden - Related Data Allergies/Adverse Reactions: Allergies Allergy/AdvReac Type Severity Reaction Status Date / Time codeine AdvReac Vomiting Verified 04/25/17 01:46 bandaids Allergy Rash Uncoded 04/25/17 01:46 Home Medications: Home Meds Albuterol [Ventolin HFA] 2 puff INH Q4HR PRN 08/16/13 [History] Furosemide 40 mg PO DAILY 08/16/13 [History] Aspirin [Halfprin] 81 mg PO DAILY #1 tab.ec 08/20/13 [Rx] Carvedilol 25 mg PO BID #1 08/20/13 [Rx] Albuterol/Ipratropium [DuoNeb 3.0-0.5 MG/3 ML] 3 ml NEB Q4HRRT PRN 01/06/16 [ History] Lisinopril 20 mg PO DAILY 01/06/16 [History] Nitroglycerin [Nitrostat] 0.4 mg SL Q5M PRN 01/06/16 [History] Budesonide [Pulmicort] 0.5 mg NEB BIDRT neb 07/27/16 [Rx] Omeprazole 20 mg PO DAILY@0700 cap.cr 07/27/16 [Rx] Simvastatin [Zocor] 40 mg PO BEDTIME tablet 07/27/16 [Rx] Aclidinium [place] [Tudorza Pressair] 1 puff IH BID 04/25/17 [History] Escitalopram [Lexapro] 20 mg PO DAILY 04/25/17 [History] Furosemide [Lasix] 20 mg PO DAILY 04/25/17 [History] LORazepam 1 mg PO DAILY PRN 04/25/17 [History] LORazepam [Ativan] 2 mg PO BEDTIME 04/25/17 [History] Nicotine [Habitrol] 21 mg TRDERM DAILY 04/25/17 [History] traMADol [Ultram] 50 mg PO Q6H PRN 04/25/17 [History] Past Medical History HEENT History: Reports: None Cardiovascular History: Reports: CAD, Cardiomyopathy, Heart Failure, High Cholesterol, Hypertension, NC Respiratory History: Reports: COPD Other Respiratory History: pt uses home O2 at 1L NC throughout day. 2L at night Gastrointestinal History: Reports: Other (See Below) Other Gastrointestinal History: reports that she has been having bloody stools ( BRB) is scheduled for colonoscopy SundayJanuary 09 Genitourinary History: Reports: None GUN NUMBER History: Reports: None Musculoskeletal History: Reports: None Neurological History: Reports: None Psychiatric History: Reports: Depression Endocrine/Metabolic History: Reports: None Hematologic History: Other Hematologic History: hepatitis Immunologic History: Reports: None Oncologic (Cancer) History: Reports: None Dermatologic History: Reports: None - Infectious Disease History Infectious Disease History: Reports: Other (See Below) Other Infectious Disease History: hx of hepatitis but does not know which one - Past Surgical History Head Surgeries/Procedures: Reports: None HEENT Surgical History: Reports: None Female Surgical History: Reports: Hysterectomy Endocrine Surgical History: Reports: None Neurological Surgical History: Reports: None Musculoskeletal Surgical History: Reports: Other (See Below) Other Musculoskeletal Surgeries/Procedures:: right humerous fx Oncologic Surgical History: Reports: None Dermatological Surgical History: Reports: None Social & Family History - Family History Family Medical History: Noncontributory - Tobacco Use Smoking Status *Q: Current Every Day Smoker Years of Tobacco use: 48 Packs/Tins Daily: 0.7 Tobacco Use Comment: former smoker Second Hand Smoke Exposure: Yes - Caffeine Use Caffeine Use: Reports: Coffee - Alcohol Use Days Per Week of Alcohol Use: 7 Number of Drinks Per Day: 5 Total Drinks Per Week: 35 - Recreational Drug Use Recreational Drug Use: No - Living Situation & Occupation Living situation: Reports: Occupation: Employed H&P Review of Systems - Review of Systems: Review Of Systems: See Below General: Reports: Weakness HEENT: Reports: No Symptoms Pulmonary: Reports: Shortness of Breath. Denies: Cough Cardiovascular: Reports: Dyspnea on Exertion. Denies: Chest Pain, Edema Gastrointestinal: Reports: No Symptoms Genitourinary: Reports: No Symptoms Musculoskeletal: Reports: Arm Pain, Joint Pain Skin: Reports: No Symptoms Psychiatric: Reports: No Symptoms Neurological: Reports: Weakness Hematologic/Lymphatic: Reports: No Symptoms Immunologic: Reports: No Symptoms Exam - Exam Exam: See Below - Vital Signs Vital Signs: Last Vital Signs Temp 36.3 C 04/25/17 12:39 Pulse 71 04/25/17 12:39 Resp 18 04/25/17 12:39 BP 125/77 04/25/17 12:39 Pulse Ox 95 04/25/17 12:39 Weight: 78.471 kg - Exam Quality Assessment: Supplemental Oxygen General: Alert, Oriented HEENT: Conjunctiva Clear Neck: Supple Lungs: Decreased Breath Sounds Cardiovascular: Regular Rate, Regular Rhythm GI/Abdominal Exam: Soft, Non-Tender Extremities: Other (Right upper extremity in immobilizer due to humerus fracture ) Skin: Warm, Dry Neuro Extensive - Mental Status: Alert, Oriented x3 - Patient Data Lab Results Last 24 hrs: Potassium returns at 2.9 sodium returns at 131 glucose 117 CO2 43 creatinine 0.7 *Q Meaningful Use (ADM) - VTE *Q VTE Criteria *Q: - Stroke *Q Stroke Criteria *Q: - AMI *Q AMI Criteria *Q: - Problem List (1) Weakness SNOMED Code(s): 27301127 ICD Code: R53.1 - WEAKNESS Status: Acute Current Visit: No (2) COPD mixed type SNOMED Code(s): 57574187 ICD Code: J44.9 - CHRONIC OBSTRUCTIVE PULMONARY DISEASE, UNSPECIFIED Status : Acute Current Visit: Yes (3) Hyponatremia SNOMED Code(s): 10475050 ICD Code: E87.1 - HYPO-OSMOLALITY AND HYPONATREMIA Status: Acute Current Visit: No Onset Date: 06/26/15 (4) Proximal humerus fracture SNOMED Code(s): 841851587 ICD Code: S42.209A - UNSP FRACTURE OF UPPER END OF UNSP HUMERUS, INIT FOR CLOS FX Status: Acute Current Visit: No Qualifiers: Encounter type: subsequent encounter Fracture type: closed Laterality: right (5) CAD (coronary artery disease) SNOMED Code(s): 70598559 ICD Code: I25.10 - ATHSCL HEART DISEASE OF [place] CORONARY ARTERY W/O ANG PCTRS Status: Chronic Current Visit: No (6) HTN, Benign hypertension SNOMED Code(s): 89247800 ICD Code: I10 - ESSENTIAL (PRIMARY) HYPERTENSION Status: Chronic Current Visit: No (7) Hyperlipidemia SNOMED Code(s): 94773889 ICD Code: E78.5 - HYPERLIPIDEMIA, UNSPECIFIED Status: Chronic Current Visit: No Qualifiers: Hyperlipidemia type: other hyperlipidemia Qualified Code(s): E78.4 - Other hyperlipidemia (8) Hypokalemia SNOMED Code(s): 78844017 ICD Code: E87.6 - HYPOKALEMIA Status: Acute Current Visit: No Problem List Initiated/Reviewed/Updated: Yes Orders Last 24hrs: Active Orders 24 hr Category Date Time Status Patient Status [ADT] Routine ADT 04/25/17 12:35 Active Height and Weight [RC] DAILY Care 04/25/17 13:05 Ordered Immobilizer [RC] ASDIRECTED Care 04/25/17 13:22 Active Intake and Output [RC] QSHIFT Care 04/25/17 13:06 Ordered Oxygen Therapy [RC] PRN Care 04/25/17 13:05 Ordered Up With Assistance [RC] ASDIRECTED Care 04/25/17 13:05 Ordered VTE/DVT Education [RC] PER UNIT ROUTINE Care 04/25/17 13:05 Ordered Vital Signs [RC] Q4H Care 04/25/17 13:05 Ordered OT Evaluation and Treatment [CONS] Routine Cons 04/25/17 13:05 Ordered PT Evaluation and Treatment [CONS] Routine Cons 04/25/17 13:05 Ordered Regular Diet [DIET] Diet 04/25/17 Lunch Ordered BASIC METABOLIC PANEL,BMP [CHEM] AM Lab 04/26/17 05:11 Ordered Acetaminophen [Tylenol] Med 04/25/17 13:05 Ordered 650 mg PO Q4H PRN Aclidinium [place] [Tudorza Pressair] Med 04/25/17 20:00 Ordered 1 puff IH BID Albuterol/Ipratropium [DuoNeb 3.0-0.5 MG/3 ML] Med 04/25/17 13:10 Ordered 3 ml NEB Q4HRRT PRN Aspirin [Halfprin] Med 04/26/17 08:00 Ordered 81 mg PO DAILY Budesonide [Pulmicort] Med 04/25/17 20:00 Ordered 0.5 mg NEB BIDRT Carvedilol [Coreg] Med 04/25/17 20:00 Ordered 25 mg PO BID Escitalopram [Lexapro] Med 04/26/17 08:00 Ordered 20 mg PO DAILY Furosemide [Lasix] Med 04/25/17 13:15 Ordered 20 mg PO DAILY Furosemide [Lasix] Med 04/26/17 08:00 Ordered 40 mg PO DAILY LORazepam [Ativan] Med 04/25/17 13:10 Ordered 1 mg PO DAILY PRN LORazepam [Ativan] Med 04/25/17 20:00 Ordered 2 mg PO BEDTIME Lisinopril [Lisinopril] Med 04/26/17 08:00 Ordered 20 mg PO DAILY Nicotine [Habitrol] Med 04/25/17 13:15 Ordered 21 mg TRDERM DAILY Nitroglycerin [Nitrostat] Med 04/25/17 13:10 Ordered 0.4 mg SL Q5M PRN Omeprazole Med 04/26/17 07:00 Ordered 20 mg PO DAILY@0700 Potassium Chloride [KCL 20 MEQ in Water 50 ML] 20 meq Med 04/25/17 13:30 Ordered Premix Bag 1 bag IV Q2H Simvastatin [Zocor] Med 04/25/17 20:00 Ordered 40 mg PO BEDTIME traMADol [Ultram] Med 04/25/17 13:10 Ordered 50 mg PO Q6H PRN Resuscitation Status Routine Resus Stat 04/25/17 13:05 Ordered Medication Orders Acetaminophen (Tylenol) 650 mg PO Q4H PRN PRN Reason: Pain (Mild 1-3)/fever Albuterol/Ipratropium (Duoneb 3.0-0.5 Mg/3 Ml) 3 ml NEB Q4HRRT PRN PRN Reason: Shortness of Breath Aspirin (Halfprin) 81 mg PO DAILY SERVANDO Budesonide (Pulmicort) 0.5 mg NEB BIDRT SERVANDO Carvedilol (Coreg) 25 mg PO BID SERVANDO Furosemide (Lasix) 40 mg PO DAILY SERVANDO Furosemide (Lasix) 20 mg PO DAILY@1600 SERVANDO Potassium Chloride 20 meq/ (Premix) 50 mls @ 25 mls/hr IV Q2H SERVANDO Stop: 04/25/17 19:29 Last Admin: 04/25/17 13:51 Dose: 25 mls/hr Lisinopril (Prinivil) 20 mg PO DAILY SERVANDO Lorazepam (Ativan) 2 mg PO BEDTIME SERVANDO Lorazepam (Ativan) 1 mg PO DAILY PRN PRN Reason: Anxiety Nicotine (Habitrol) 21 mg TRDERM DAILY SERVANDO Last Admin: 04/25/17 13:51 Dose: 21 mg Nitroglycerin (Nitrostat) 0.4 mg SL Q5M PRN PRN Reason: Chest Pain Non-Formulary Medication (Aclidinium [place] [Tudorza Pressair]) 1 puff IH BID SERVANDO Non-Formulary Medication (Escitalopram [Lexapro]) 20 mg PO DAILY SERVANDO Omeprazole (Omeprazole) 20 mg PO DAILY@0700 SERVANDO Simvastatin (Zocor) 40 mg PO BEDTIME SERVANDO Tramadol HCl (Ultram) 50 mg PO Q6H PRN PRN Reason: Pain Assessment/Plan Comment:: Patient will be admitted to acute care. She'll be started on IV therapy as well as IV potassium replacement. Physical therapy and active basal therapy will be consult that. Adjustments will be made to her therapeutic regimen as necessary She is a code level III DNR/DNI
[2017-04-25] MEDS: Furosemide 20 MG Tab PO SCH (15:48)
[2017-04-25] MEDS: Carvedilol 25 MG Tab PO SCH (19:46)
[2017-04-25] MEDS: Simvastatin 40 MG Tab PO SCH (19:48)
[2017-04-25] MEDS: LORazepam 1 MG Tab PO SCH (19:49)
[2017-04-25] MEDS: Budesonide 0.5 MG/2 ML Neb Susp NEB SCH (19:50)
[2017-04-25] MEDS: ACLIDINIUM BROMIDE IH SCH (19:50)
[2017-04-26] MEDS: traMADol 50 MG Tab PO PRN ×3 (05:12→18:27)
[2017-04-26] MEDS: Omeprazole 20 MG Cap.CR PO SCH ×2 (05:13→07:32)
[2017-04-26] MEDS: Sodium Chloride 0.9% 1,000 ML IV SCH (06:00)
[2017-04-26] MEDS: Budesonide 0.5 MG/2 ML Neb Susp NEB SCH ×2 (07:08→19:32)
[2017-04-26] MEDS: Albuterol/Ipratropium 3.0-0.5 MG/3 ML Neb Soln NEB PRN (07:08)
[2017-04-26] MEDS: Nicotine 21 MG/24 Hr Patch TRDERM SCH (07:32)
[2017-04-26] MEDS: Carvedilol 25 MG Tab PO SCH ×2 (07:32→19:32)
[2017-04-26] MEDS: Aspirin 81 MG Tab.EC PO SCH (07:32)
[2017-04-26] MEDS: Furosemide 40 MG Tab PO SCH (07:32)
[2017-04-26] MEDS: Lisinopril 20 MG Tab PO SCH (07:32)
[2017-04-26] MEDS: Citalopram 20 MG Tab PO SCH (07:32)
[2017-04-26] MEDS: ACLIDINIUM BROMIDE IH SCH ×2 (07:33→19:32)
[2017-04-26 07:48] LABS: CHLORIDE,CL 95 mmol/L (98-107); SODIUM,NA 137 mmol/L (136-145)
[2017-04-26] MEDS ORDERED: Sodium Chloride 0.9% 10 ML Syringe FLUSH PRN (08:12)
[2017-04-26] MEDS: Potassium Chloride 10 MEQ Tab.ER PO SCH ×3 (08:24→17:10)
[2017-04-26] MEDS: Magnesium Chloride 64 MG Tab.ER PO SCH (09:15)
[2017-04-26] MEDS ORDERED: Magnesium Sulfate/Water 100 ML IV ONE (09:52)
--- NOTE | 2017-04-26 09:59 | PCM.PN ---
- General Info Date of Service: 04/26/17 Admission Dx/Problem (Free Text): Admission Diagnosis/Problem Admission Diagnosis/Problem Electrolyte imbalance 61-year-old female admitted through the clinic with complaints of weakness. She sustained a right humerus fracture 1 week ago after she fell. She admits that she was intoxicated at the time of her fall. She states that she has not had any alcohol since that time. She was treated for hyponatremia last week as an out-patient. Her weakness has persisted. She did fall again at home last night. She denies any further injuries. Patient initially presented to the clinic for evaluation. She was noted to be hypotensive. Lab work was drawn and IV therapy was initiated. Lab called with a critical potassium level of 2.9. Subsequently arrangements were made for admission for inpatient therapy. Subjective Update: Overall patient states she is feeling better than yesterday. States she is breathing better. Notes that her chest doesn't feel as week. Has not yet been evaluated by therapy. Was able to eat breakfast. Functional Status: Reports: Pain Controlled - Review of Systems General: Reports: Weakness HEENT: Reports: No Symptoms Pulmonary: Reports: No Symptoms Cardiovascular: Reports: No Symptoms Gastrointestinal: Reports: No Symptoms Genitourinary: Reports: No Symptoms Musculoskeletal: Reports: Arm Pain, Joint Pain Skin: Reports: No Symptoms Neurological: Reports: Weakness Psychiatric: Reports: No Symptoms - Patient Data Vitals - Most Recent: Last Vital Signs Temp 37.0 C 04/26/17 09:26 Pulse 64 04/26/17 09:26 Resp 20 04/26/17 09:26 BP 91/49 L 04/26/17 09:26 Pulse Ox 93 L 04/26/17 09:26 Weight - Most Recent: 85.389 kg I&O - Last 24 Hours: Intake & Output 04/25/17 04/26/17 04/26/17 22:59 06:59 14:59 Intake Total 1413 2442 400 Output Total 1175 500 Balance 238 1942 400 Lab Results Last 24 Hours: Laboratory Results - last 24 hr 04/26/17 04/26/17 Range/Units 07:25 07:25 Sodium 137 (136-145) mmol/L Potassium 3.2 L (3.5-5.1) mmol/L Chloride 95 L D (98-107) mmol/L Carbon Dioxide 40 H (21-32) mmol/L BUN 4 L (7-18) mg/dL Creatinine 0.5 L (0.55-1.02) mg/dL Est Cr Clr Drug Dosing 98.98 mL/min Estimated GFR (MDRD) > 60 Glucose 104 (74-106) mg/dL Calcium 8.4 L (8.5-10.1) mg/dL Phosphorus 2.8 (2.6-4.7) mg/dL Magnesium 1.1 L (1.8-2.4) mg/dL Med Orders - Current: Current Medications Acetaminophen (Tylenol) 650 mg PO Q4H PRN PRN Reason: Pain (Mild 1-3)/fever Albuterol/Ipratropium (Duoneb 3.0-0.5 Mg/3 Ml) 3 ml NEB Q4HRRT PRN PRN Reason: Shortness of Breath Last Admin: 04/26/17 07:08 Dose: 3 ml Aspirin (Halfprin) 81 mg PO DAILY [facility] Last Admin: 04/26/17 07:32 Dose: 81 mg Budesonide (Pulmicort) 0.5 mg NEB BIDRT [facility] Last Admin: 04/26/17 07:08 Dose: 0.5 mg Carvedilol (Coreg) 25 mg PO BID [facility] Last Admin: 04/26/17 07:32 Dose: 25 mg Citalopram Hydrobromide (Celexa) 40 mg PO DAILY [facility] Last Admin: 04/26/17 07:32 Dose: 40 mg Furosemide (Lasix) 40 mg PO DAILY [facility] Last Admin: 04/26/17 07:32 Dose: 40 mg Furosemide (Lasix) 20 mg PO DAILY@1600 [facility] Last Admin: 04/25/17 15:48 Dose: 20 mg Magnesium Sulfate (Magnesium Sulfate 4 Gm In Water 100 Ml) 100 mls @ 25 mls/hr IV ONETIME ONE Stop: 04/26/17 13:51 Lisinopril (Prinivil) 20 mg PO DAILY [facility] Last Admin: 04/26/17 07:32 Dose: 20 mg Lorazepam (Ativan) 2 mg PO BEDTIME [facility] Last Admin: 04/25/17 19:49 Dose: 2 mg Lorazepam (Ativan) 1 mg PO DAILY PRN PRN Reason: Anxiety Magnesium Chloride (Mag-64) 64 mg PO DAILY [facility] Last Admin: 04/26/17 09:15 Dose: 64 mg Nicotine (Habitrol) 21 mg TRDERM DAILY [facility] Last Admin: 04/26/17 07:32 Dose: 21 mg Nitroglycerin (Nitrostat) 0.4 mg SL Q5M PRN PRN Reason: Chest Pain Aclidinium [place] [ Tudorza Pressair] 1 PuffOwn Med 1 puff IH BID [facility] Last Admin: 04/26/17 07:33 Dose: 1 puff Omeprazole (Omeprazole) 20 mg PO DAILY@0700 [facility] Last Admin: 04/26/17 07:32 Dose: Not Given Potassium Chloride (Klor-Con 10) 20 meq PO BIDMEALS [facility] Last Admin: 04/26/17 08:24 Dose: 20 meq Simvastatin (Zocor) 40 mg PO BEDTIME [facility] Last Admin: 04/25/17 19:48 Dose: 40 mg Sodium Chloride (Saline Flush) 10 ml FLUSH ASDIRECTED PRN PRN Reason: Keep Vein Open Tramadol HCl (Ultram) 50 mg PO Q6H PRN PRN Reason: Pain Last Admin: 04/26/17 05:12 Dose: 50 mg Discontinued Medications Hydrocodone Bitart/Acetaminophen ([place] 325-5 Mg) 2 tab PO Q4H PRN PRN Reason: Pain (moderate 4-6) Potassium Chloride 20 meq/ (Premix) 50 mls @ 25 mls/hr IV Q2H [facility] Stop: 04/25/17 19:29 Last Admin: 04/25/17 19:46 Dose: 25 mls/hr Sodium Chloride (Normal Saline) 1,000 mls @ 100 mls/hr IV ASDIRECTED [facility] Last Admin: 04/26/17 06:00 Dose: 100 mls/hr Nicotine (Habitrol) 21 mg TRDERM DAILY [facility] Last Admin: 04/25/17 13:38 Dose: Not Given - Exam Quality Assessment: Supplemental Oxygen General: Alert, Oriented HEENT: Pupils Equal Neck: Supple Lungs: Clear to Auscultation Cardiovascular: Regular Rate, Regular Rhythm GI/Abdominal Exam: Normal Bowel Sounds Extremities: Normal Inspection - Problem List & Annotations (1) Weakness SNOMED Code(s): 60908537 Code(s): R53.1 - WEAKNESS Status: Acute Current Visit: No (2) COPD mixed type SNOMED Code(s): 68422880 Code(s): J44.9 - CHRONIC OBSTRUCTIVE PULMONARY DISEASE, UNSPECIFIED Status : Acute Current Visit: Yes (3) Hyponatremia SNOMED Code(s): 53157702 Code(s): E87.1 - HYPO-OSMOLALITY AND HYPONATREMIA Status: Acute Current Visit: No Onset Date: 06/26/15 (4) Proximal humerus fracture SNOMED Code(s): 249156015 Code(s): S42.209A - UNSP FRACTURE OF UPPER END OF UNSP HUMERUS, INIT FOR CLOS FX Status: Acute Current Visit: No Qualifiers: Encounter type: subsequent encounter Fracture type: closed Laterality: right (5) CAD (coronary artery disease) SNOMED Code(s): 71910901 Code(s): I25.10 - ATHSCL HEART DISEASE OF [place] CORONARY ARTERY W/O ANG PCTRS Status: Chronic Current Visit: No (6) HTN, Benign hypertension SNOMED Code(s): 86804449 Code(s): I10 - ESSENTIAL (PRIMARY) HYPERTENSION Status: Chronic Current Visit: No (7) Hyperlipidemia SNOMED Code(s): 07743754 Code(s): E78.5 - HYPERLIPIDEMIA, UNSPECIFIED Status: Chronic Current Visit: No Qualifiers: Hyperlipidemia type: other hyperlipidemia Qualified Code(s): E78.4 - Other hyperlipidemia (8) Hypokalemia SNOMED Code(s): 10533472 Code(s): E87.6 - HYPOKALEMIA Status: Acute Current Visit: No (9) Hypomagnesemia SNOMED Code(s): 820972640 Code(s): E83.42 - HYPOMAGNESEMIA Status: Acute Current Visit: Yes - Problem List Review Problem List Initiated/Reviewed/Updated: Yes - My Orders Last 24 Hours: My Active Orders 04/25/17 12:35 Patient Status [ADT] Routine 04/25/17 13:05 Height and Weight [RC] 07 Oxygen Therapy [RC] 08,20 Up With Assistance [RC] ASDIRECTED VTE/DVT Education [RC] .PRN Vital Signs [RC] 06,10,14,18,22,02 OT Evaluation and Treatment [CONS] Routine PT Evaluation and Treatment [CONS] Routine Acetaminophen [Tylenol] 650 mg PO Q4H PRN Resuscitation Status Routine 04/25/17 13:06 Intake and Output [RC] QSHIFT 04/25/17 13:10 Albuterol/Ipratropium [DuoNeb 3.0-0.5 MG/3 ML] 3 ml NEB Q4HRRT PRN LORazepam [Ativan] 1 mg PO DAILY PRN Nitroglycerin [Nitrostat] 0.4 mg SL Q5M PRN traMADol [Ultram] 50 mg PO Q6H PRN 04/25/17 13:15 Nicotine [Habitrol] 21 mg TRDERM DAILY 04/25/17 13:22 Immobilizer [RC] ASDIRECTED 04/25/17 16:00 Furosemide [Lasix] 20 mg PO DAILY@1600 04/25/17 20:00 Aclidinium [place] [Tudorza Pressair] 1 puff IH BID Budesonide [Pulmicort] 0.5 mg NEB BIDRT Carvedilol [Coreg] 25 mg PO BID LORazepam [Ativan] 2 mg PO BEDTIME Simvastatin [Zocor] 40 mg PO BEDTIME 04/25/17 Lunch Regular Diet [DIET] 04/26/17 07:00 Omeprazole 20 mg PO DAILY@0700 04/26/17 08:00 Aspirin [Halfprin] 81 mg PO DAILY Citalopram [Celexa] 40 mg PO DAILY Furosemide [Lasix] 40 mg PO DAILY Lisinopril [Prinivil] 20 mg PO DAILY 04/26/17 08:12 Sodium Chloride 0.9% [Saline Flush] 10 ml FLUSH ASDIRECTED PRN Convert IV to Saline Lock [OM.PC] Routine 04/26/17 08:15 Potassium Chloride [Klor-Con 10] 20 meq PO BIDMEALS 04/26/17 09:00 Magnesium Chloride [Mag-64] 64 mg PO DAILY 04/26/17 09:52 Magnesium Sulfate 4 GM in Water @ Enter Rate(100ml) Magnesium Sulfate/Water [ Magnesium Sulfate 4 GM in Water 100 ML] 100 ml IV ONETIME 04/26/17 16:00 BASIC METABOLIC PANEL,BMP [CHEM] Routine - Assessment Assessment:: 1. Weakness - improving 2. Hypnatremia - resolved 3. Hypokalemia - improving 4. Hypomagnesia - new diagnosis 5. Right humerus fracture - present on admission 6. COPD - Severe - stable 7. CHF - chronic - both systolic and diastolic - severe - stable - Plan Plan:: Patient will be started on magnesium therapy. Oral potassium supplements will also be initiated. I will give her 2 more "bumps" of IV potassium supplements as well given that 60 mEq only improved her potassium from 2.9-3.1. Will await therapy consultation. I'm going to saline lock her maintenance IV fluids. I do not want to tip her into a volume overload status. Anticipate discharge in a.m.
[2017-04-26] MEDS: Furosemide 20 MG Tab PO SCH (16:35)
[2017-04-26 16:50] LABS: CHLORIDE,CL 93 mmol/L (98-107); SODIUM,NA 136 mmol/L (136-145)
[2017-04-26] MEDS: LORazepam 1 MG Tab PO SCH (19:31)
[2017-04-26] MEDS: Simvastatin 40 MG Tab PO SCH (19:32)
[2017-04-27] MEDS: traMADol 50 MG Tab PO PRN ×2 (02:25→09:00)
[2017-04-27 05:11] VITALS: BP 136/85
[2017-04-27] MEDS: Omeprazole 20 MG Cap.CR PO SCH (06:32)
[2017-04-27] MEDS: Budesonide 0.5 MG/2 ML Neb Susp NEB SCH (07:04)
[2017-04-27] MEDS: Albuterol/Ipratropium 3.0-0.5 MG/3 ML Neb Soln NEB PRN (07:04)
[2017-04-27 07:28] LABS: CHLORIDE,CL 93 mmol/L (98-107); SODIUM,NA 134 mmol/L (136-145)
[2017-04-27] MEDS: ACLIDINIUM BROMIDE IH SCH (08:25)
[2017-04-27] MEDS: Lisinopril 20 MG Tab PO SCH (08:25)
[2017-04-27] MEDS: Citalopram 20 MG Tab PO SCH (08:25)
[2017-04-27] MEDS: Potassium Chloride 10 MEQ Tab.ER PO SCH (08:26)
[2017-04-27] MEDS: Aspirin 81 MG Tab.EC PO SCH (08:26)
[2017-04-27] MEDS: Carvedilol 25 MG Tab PO SCH (08:26)
[2017-04-27] MEDS: Magnesium Chloride 64 MG Tab.ER PO SCH (08:26)
[2017-04-27] MEDS: Furosemide 40 MG Tab PO SCH (08:26)
[2017-04-27] MEDS: Nicotine 21 MG/24 Hr Patch TRDERM SCH (08:27)
[2017-04-27] MEDS ORDERED: FLU Vacc QS 2017-18 (36mos UP)/PF 60 MCG/0.5 ML Syringe IM ONE (09:00)
--- NOTE | 2017-05-30 20:17 | PCM.DCSUM1 ---
Discharge Summary - Hospital Course Free Text/Narrative:: 62 year old female admitted with weakness. Found to be hyponatremic and hypokalemic. Left humerus fracture present on admission. - Discharge Data Discharge Date: 04/27/17 Discharge Disposition: Home, Self-Care 01 Condition: Good - Discharge Diagnosis/Problem(s) (1) Weakness SNOMED Code(s): 91212881 ICD Code: R53.1 - WEAKNESS Status: Acute (2) COPD mixed type SNOMED Code(s): 64248748 ICD Code: J44.9 - CHRONIC OBSTRUCTIVE PULMONARY DISEASE, UNSPECIFIED Status : Acute (3) Hyponatremia SNOMED Code(s): 55676244 ICD Code: E87.1 - HYPO-OSMOLALITY AND HYPONATREMIA Status: Acute Onset Date: 06/26/15 (4) Proximal humerus fracture SNOMED Code(s): 561380765 ICD Code: S42.209A - UNSP FRACTURE OF UPPER END OF UNSP HUMERUS, INIT FOR CLOS FX Status: Acute Qualifiers: Encounter type: subsequent encounter Fracture type: closed Laterality: right (5) CAD (coronary artery disease) SNOMED Code(s): 02918503 ICD Code: I25.10 - ATHSCL HEART DISEASE OF [place] CORONARY ARTERY W/O ANG PCTRS Status: Chronic (6) HTN, Benign hypertension SNOMED Code(s): 35190447 ICD Code: I10 - ESSENTIAL (PRIMARY) HYPERTENSION Status: Chronic (7) Hyperlipidemia SNOMED Code(s): 32424173 ICD Code: E78.5 - HYPERLIPIDEMIA, UNSPECIFIED Status: Chronic Qualifiers: Hyperlipidemia type: other hyperlipidemia Qualified Code(s): E78.4 - Other hyperlipidemia (8) Hypokalemia SNOMED Code(s): 05500972 ICD Code: E87.6 - HYPOKALEMIA Status: Acute (9) Hypomagnesemia SNOMED Code(s): 102668404 ICD Code: E83.42 - HYPOMAGNESEMIA Status: Acute - Patient Summary/Data Consults: Consultations 04/25/17 13:05 OT Evaluation and Treatment [CONS] Routine PT Evaluation and Treatment [CONS] Routine Hospital Course: Patient was admitted to the hospital. IV fluids and potassium supplements initiated. Patients symptoms of nausea, dizziness and weakness gradually resolved. Labs were monitored and replacement doses were adjusted accordingly. Potassium level was slow to normalize. Additional lab work was completed and patient found to have hypomagnesia as well. Magnesium replacement was ordered. Clinically the patient continued to improve. - Patient Instructions Diet: Heart Healthy Diet, Fluid Restriction Fluid Restriction: 1500 mL Driving: Do Not Drive - Discharge Plan Prescriptions/Med Rec: Magnesium Chloride [Mag-64] 64 mg PO DAILY #30 tab.er Potassium Chloride [Klor-Con 10] 20 meq PO BIDMEALS #60 tab.er traMADol [Ultram] 50 mg PO Q8H PRN #60 tablet PRN Reason: Pain Home Medications: Home Meds Albuterol [Ventolin HFA] 2 puff INH Q4HR PRN 08/16/13 [History] Furosemide 40 mg PO DAILY 08/16/13 [History] Aspirin [Halfprin] 81 mg PO DAILY #1 tab.ec 08/20/13 [Rx] Carvedilol 25 mg PO BID #1 08/20/13 [Rx] Albuterol/Ipratropium [DuoNeb 3.0-0.5 MG/3 ML] 3 ml NEB Q4HRRT PRN 01/06/16 [ History] Lisinopril 20 mg PO DAILY 01/06/16 [History] Nitroglycerin [Nitrostat] 0.4 mg SL Q5M PRN 01/06/16 [History] Budesonide [Pulmicort] 0.5 mg NEB BIDRT neb 07/27/16 [Rx] Omeprazole 20 mg PO DAILY@0700 cap.cr 07/27/16 [Rx] Simvastatin [Zocor] 40 mg PO BEDTIME tablet 07/27/16 [Rx] Aclidinium [place] [Tudorza Pressair] 1 puff IH BID 04/25/17 [History] Escitalopram [Lexapro] 20 mg PO DAILY 04/25/17 [History] Furosemide [Lasix] 20 mg PO DAILY 04/25/17 [History] LORazepam 1 mg PO DAILY PRN 04/25/17 [History] LORazepam [Ativan] 2 mg PO BEDTIME 04/25/17 [History] Nicotine [Habitrol] 21 mg TRDERM DAILY 04/25/17 [History] traMADol [Ultram] 50 mg PO Q6H PRN 04/25/17 [History] Magnesium Chloride [Mag-64] 64 mg PO DAILY #30 tab.er 04/27/17 [Rx] Potassium Chloride [Klor-Con 10] 20 meq PO BIDMEALS #60 tab.er 04/27/17 [Rx] traMADol [Ultram] 50 mg PO Q8H PRN #60 tablet 04/27/17 [Rx] Patient Handouts: Fluid Restriction - Discharge Summary/Plan Comment DC Time >30 min.: No Discharge Summary/Plan Comment: On day of discharge patients vital signs were stable. She was tolerating regular diet without difficulty, voiding and stooling without difficulty. Patient was ambulating without difficulty. Discharge medications per medication reconciliation. She will follow up with me in 1-2 weeks. - Patient Data Vitals - Most Recent: Last Vital Signs Temp 36.3 C 04/27/17 05:10 Pulse 63 04/27/17 07:08 Resp 20 04/27/17 05:10 BP 136/85 04/27/17 05:10 Pulse Ox 93 L 04/27/17 07:06 Weight - Most Recent: 85.275 kg Med Orders - Current: Current Medications Discontinued Medications Acetaminophen (Tylenol) 650 mg PO Q4H PRN PRN Reason: Pain (Mild 1-3)/fever Hydrocodone Bitart/Acetaminophen ([place] 325-5 Mg) 2 tab PO Q4H PRN PRN Reason: Pain (moderate 4-6) Albuterol/Ipratropium (Duoneb 3.0-0.5 Mg/3 Ml) 3 ml NEB Q4HRRT PRN PRN Reason: Shortness of Breath Last Admin: 04/27/17 07:04 Dose: 3 ml Aspirin (Halfprin) 81 mg PO DAILY [facility] Last Admin: 04/27/17 08:26 Dose: 81 mg Budesonide (Pulmicort) 0.5 mg NEB BIDRT [facility] Last Admin: 04/27/17 07:04 Dose: 0.5 mg Carvedilol (Coreg) 25 mg PO BID [facility] Last Admin: 04/27/17 08:26 Dose: 25 mg Citalopram Hydrobromide (Celexa) 40 mg PO DAILY [facility] Last Admin: 04/27/17 08:25 Dose: 40 mg Furosemide (Lasix) 40 mg PO DAILY [facility] Last Admin: 04/27/17 08:26 Dose: 40 mg Furosemide (Lasix) 20 mg PO DAILY@1600 [facility] Last Admin: 04/26/17 16:35 Dose: 20 mg Potassium Chloride 20 meq/ (Premix) 50 mls @ 25 mls/hr IV Q2H [facility] Stop: 04/25/17 19:29 Last Admin: 04/25/17 19:46 Dose: 25 mls/hr Sodium Chloride (Normal Saline) 1,000 mls @ 100 mls/hr IV ASDIRECTED [facility] Last Admin: 04/26/17 06:00 Dose: 100 mls/hr Magnesium Sulfate (Magnesium Sulfate 4 Gm In Water 100 Ml) 100 mls @ 25 mls/hr IV ONETIME ONE Stop: 04/26/17 13:51 Last Admin: 04/26/17 10:31 Dose: 25 mls/hr Influenza Virus Vaccine (Fluzone Quad ) 60 mcg IM .ONCE ONE Stop: 04/25/17 13:46 Last Admin: 04/26/17 13:18 Dose: Not Given Influenza Virus Vaccine (Fluzone Quad ) 60 mcg IM .ONCE ONE Stop: 04/27/17 09:01 Last Admin: 04/27/17 08:36 Dose: 60 mcg Lisinopril (Prinivil) 20 mg PO DAILY [facility] Last Admin: 04/27/17 08:25 Dose: 20 mg Lorazepam (Ativan) 2 mg PO BEDTIME [facility] Last Admin: 04/26/17 19:31 Dose: 2 mg Lorazepam (Ativan) 1 mg PO DAILY PRN PRN Reason: Anxiety Magnesium Chloride (Mag-64) 64 mg PO DAILY [facility] Last Admin: 04/27/17 08:26 Dose: 64 mg Nicotine (Habitrol) 21 mg TRDERM DAILY [facility] Last Admin: 04/25/17 13:38 Dose: Not Given Nicotine (Habitrol) 21 mg TRDERM DAILY [facility] Last Admin: 04/27/17 08:27 Dose: Not Given Nitroglycerin (Nitrostat) 0.4 mg SL Q5M PRN PRN Reason: Chest Pain Aclidinium [place] [ Tudorza Pressair] 1 PuffOwn Med 1 puff IH BID [facility] Last Admin: 04/27/17 08:25 Dose: 1 puff Omeprazole (Omeprazole) 20 mg PO DAILY@0700 [facility] Last Admin: 04/27/17 06:32 Dose: 20 mg Potassium Chloride (Klor-Con 10) 20 meq PO BIDMEALS [facility] Last Admin: 04/27/17 08:26 Dose: 20 meq Simvastatin (Zocor) 40 mg PO BEDTIME [facility] Last Admin: 04/26/17 19:32 Dose: 40 mg Sodium Chloride (Saline Flush) 10 ml FLUSH ASDIRECTED PRN PRN Reason: Keep Vein Open Tramadol HCl (Ultram) 50 mg PO Q6H PRN PRN Reason: Pain Last Admin: 04/27/17 09:00 Dose: 50 mg *Q Meaningful Use (DIS) - VTE *Q VTE Criteria *Q: - Stroke *Q Stroke Criteria *Q: - AMI *Q AMI Criteria *Q:
== END 2017-04-27 11:02 | disposition home or self-care (01) | DRG 425 ==
LOC: VM.MS 12:35
PROVIDERS: ADMIT Family Medicine; ATTEND Family Medicine
DX: E87.6 Hypokalemia (principal); R53.1 Weakness; E87.1 Hypo-osmolality and hyponatremia; E83.42 Hypomagnesemia; J44.9 Chronic obstructive pulmonary disease, unspecified; S42.209D Unspecified fracture of upper end of unspecified humerus, subsequent encounter for fracture with routine healing; W19.XXXD Unspecified fall, subsequent encounter; I25.10 Atherosclerotic heart disease of native coronary artery without angina pectoris; I11.0 Hypertensive heart disease with heart failure; E78.5 Hyperlipidemia, unspecified; I42.9 Cardiomyopathy, unspecified; I25.2 Old myocardial infarction; F32.9 Major depressive disorder, single episode, unspecified; F17.210 Nicotine dependence, cigarettes, uncomplicated; Z88.5 Allergy status to narcotic agent; Z91.09 Other allergy status, other than to drugs and biological substances; Z79.82 Long term (current) use of aspirin; Z79.899 Other long term (current) drug therapy; Z72.89 Other problems related to lifestyle
CPT/HCPCS: 36415; 73060-RT; 80048; 80053; 83735; 84100; 90686; 94640; 94760; 97161-GP; 97165-GO; 99284; A9270-GY; J3475; J3480; J7030

== ENCOUNTER 2017-08-23 13:36 | Emergency (ER) | payer BC ==
[2017-08-23] MEDS ORDERED: Sodium Chloride 0.9% 1,000 ML IV ONE ×4 (13:38→17:00)
[2017-08-23] MEDS ORDERED: Sodium Bicarbonate 8.4% 50 MEQ/50 ML Syringe ONE ×2 (13:40→15:16)
[2017-08-23] MEDS ORDERED: Succinylcholine 200 MG/10 ML MDV ONE ×2 (13:40→15:03)
[2017-08-23] MEDS ORDERED: Midazolam 1 MG/ML 2 ML SDV ONE ×2 (13:40→15:02)
[2017-08-23] MEDS ORDERED: Rocuronium 50 MG/5 ML Vial ONE ×3 (13:40→15:03)
[2017-08-23 14:20] LABS: CHLORIDE,CL 79 mmol/L (98-107)
[2017-08-23 14:21] LABS: SODIUM,NA 123 mmol/L (136-145)
--- NOTE | 2017-08-23 14:27 | PCM.SN ---
- Free Text/Narrative Note: CODE BLUE intubation note: Call down to the emergency room as patient was brought in by ambulance after suffering a seizure restaurant. Patient was being Ambued and saturations were 96 %. No CPR was in progress. Patient had one 20-gauge IV in place. I collected the necessary equipment including a 8.0 ET tube, the Glidescope, syringes, syringes succinylcholine, rigid stylet,. I checked all equipment in the tube before beginning the intubation. Upon initial attempt to use ChloraPrep in the oropharynx was met with the patient's jaw being rigidly clamped. Continue to Ambu the patient. Succinylcholine 60 mg was given IV. At that point the mouth relaxed. I was able to swallow the oral pharynx with ChloraPrep. I didn't suction the pharynx to remove any particular that was there. I placed the glide scope in the oropharynx and visualize the cords. I advance ET tube into what looked like the glottic opening. Patient did have significant movement of the larynx while trying to place ET tube. I did advance ET tube into what I believed was the glottic opening. Balloon was inflated to 10 mL. 2 placement was equivocal as there was breath sounds but also epigastric noise. Tube was removed. Patient was Ambued 100% O2. Glidescope blade was placed I again advanced the 8.0 endotracheal tube. This time I did see the tube advanced through the cords. The stylet was removed while the tube was advanced. With the tube was advanced to approximately 22 cm of teeth, the balloon was inflated. End tidal CO2 was positive. Bilateral breath sounds were heard and no epigastric sounds were heard. Tube was secured with a Tubetamer bite block. Patient continued to be Ambued. I then began looking for an IV. I was able to locate to possible veins in the left hand side however neither one of them was able to attain good blood flow. These sites were then abandoned. I went to the right side was able to locate a vein near the thumb. With this one after having prepped the skin with ChloraPrep , inserted an 18-gauge and site catheter. I did have good blood flow. I lisa out approximately 1-2 mL of blood for lab. Then connected up a normal saline lock And flushed the IV which flushed easily. A secure the catheter with a semi- permeable dressing. I then inserted an 18 [place] slump orally. I was able to pass Wilson saw up with some slight difficulty. Using lift the larynx is able to passively OG. When I advanced to the appropriate length, I hope the who G to continuous suction. This did have some returned consistent with the contents found in the back of throat. OG was secured.
--- NOTE | 2017-08-23 14:53 | EDM.PDOC ---
ED HPI GENERAL MEDICAL PROBLEM - General Chief Complaint: CPR in Progress Stated Complaint: CODE BLUE Time Seen by Provider: 08/23/17 14:11 Source of Information: Reports: EMS, Family History Limitations: Reports: No Limitations - History of Present Illness INITIAL COMMENTS - FREE TEXT/NARRATIVE: Report of patient eating at [employer] with global sales executive. She began seizuring and was helped to the floor. She did not hit her head. She did bite her tongue. History of CABG with metal ties. 2.5 of valium given in the field. Onset: Today, Sudden - Related Data Allergies Allergy/AdvReac Type Severity Reaction Status Date / Time codeine AdvReac Vomiting Verified 04/25/17 01:46 bandaids Allergy Rash Uncoded 04/25/17 01:46 Home Meds: Home Meds Albuterol [Ventolin HFA] 2 puff INH Q4HR PRN 08/16/13 [History] Furosemide 40 mg PO DAILY 08/16/13 [History] Aspirin [Halfprin] 81 mg PO DAILY #1 tab.ec 08/20/13 [Rx] Carvedilol 25 mg PO BID #1 08/20/13 [Rx] Albuterol/Ipratropium [DuoNeb 3.0-0.5 MG/3 ML] 3 ml NEB Q4HRRT PRN 01/06/16 [ History] Lisinopril 20 mg PO DAILY 01/06/16 [History] Nitroglycerin [Nitrostat] 0.4 mg SL Q5M PRN 01/06/16 [History] Budesonide [Pulmicort] 0.5 mg NEB BIDRT neb 07/27/16 [Rx] Omeprazole 20 mg PO DAILY@0700 cap.cr 07/27/16 [Rx] Simvastatin [Zocor] 40 mg PO BEDTIME tablet 07/27/16 [Rx] Aclidinium [place] [Tudorza Pressair] 1 puff IH BID 04/25/17 [History] Escitalopram [Lexapro] 20 mg PO DAILY 04/25/17 [History] Furosemide [Lasix] 20 mg PO DAILY 04/25/17 [History] LORazepam 1 mg PO DAILY PRN 04/25/17 [History] LORazepam [Ativan] 2 mg PO BEDTIME 04/25/17 [History] Nicotine [Habitrol] 21 mg TRDERM DAILY 04/25/17 [History] traMADol [Ultram] 50 mg PO Q6H PRN 04/25/17 [History] Magnesium Chloride [Mag-64] 64 mg PO DAILY #30 tab.er 04/27/17 [Rx] Potassium Chloride [Klor-Con 10] 20 meq PO BIDMEALS #60 tab.er 04/27/17 [Rx] traMADol [Ultram] 50 mg PO Q8H PRN #60 tablet 04/27/17 [Rx] Past Medical History HEENT History: Reports: None Cardiovascular History: Reports: CAD, Cardiomyopathy, Heart Failure, High Cholesterol, Hypertension, [place] Respiratory History: Reports: COPD Other Respiratory History: pt uses home O2 at 1L [place] throughout day. 2L at night Gastrointestinal History: Reports: Other (See Below) Other Gastrointestinal History: reports that she has been having bloody stools ( BRB) is scheduled for colonoscopy SundayJanuary 09 Genitourinary History: Reports: None BLUNGER LOADER History: Reports: None Musculoskeletal History: Reports: None Neurological History: Reports: None Psychiatric History: Reports: Depression Endocrine/Metabolic History: Reports: None Hematologic History: Other Hematologic History: hepatitis Immunologic History: Reports: None Oncologic (Cancer) History: Reports: None Dermatologic History: Reports: None - Infectious Disease History Infectious Disease History: Reports: Other (See Below) Other Infectious Disease History: hx of hepatitis but does not know which one - Past Surgical History Head Surgeries/Procedures: Reports: None HEENT Surgical History: Reports: None Female Surgical History: Reports: Hysterectomy Endocrine Surgical History: Reports: None Neurological Surgical History: Reports: None Musculoskeletal Surgical History: Reports: Other (See Below) Other Musculoskeletal Surgeries/Procedures:: right humerous fx Oncologic Surgical History: Reports: None Dermatological Surgical History: Reports: None Social & Family History - Family History Family Medical History: Noncontributory - Tobacco Use Smoking Status *Q: Current Every Day Smoker Years of Tobacco use: 48 Packs/Tins Daily: 0.7 Second Hand Smoke Exposure: Yes - Caffeine Use Caffeine Use: Reports: Coffee - Alcohol Use Days Per Week of Alcohol Use: 7 Number of Drinks Per Day: 5 Total Drinks Per Week: 35 - Recreational Drug Use Recreational Drug Use: No - Living Situation & Occupation Living situation: Reports: Occupation: Employed ED ROS GENERAL - Review of Systems Review Of Systems: Unable To Obtain Musculoskeletal: Reports: Other (right humerus fracture per friend) ED EXAM, CPR - Physical Exam Exam: See Below Limited By: Unresponsive Eye Exam: Bilateral Eye: PERRL Ears: Normal TMs Throat/Mouth: Other (blood noted from bitten tongue) Head: Atraumatic, Normocephalic Respiratory Chest: Lungs Clear, Respiratory Distress, Other (agonal breathing) Cardiovascular: Normal Pulse, Regular Rate, Rhythm GI/Abdominal Exam: Normal Bowel Sounds, Soft, Non-Tender, No Organomegaly, No Distention, No Abnormal Bruit, No Mass, Pelvis Stable Extremities: Pedal Edema, Other Skin Exam: Warm, Dry, Intact ED CPR PROCEDURES - Endotracheal Intubation Time of Intubation: 13:45 (Zachary Martinez TELEPHONE QUOTATION CLERK intubated. ) ETT Size In mm: 8 (24 at the lips) Number of Attempts: 2 Course - Orders/Labs/Meds Orders: Active Orders 24 hr Category Date Time Status Chest 1V Frontal [CR] Routine Exams 08/23/17 14:00 Taken Head wo Cont [CT] Stat Exams 08/23/17 14:12 Ordered Labs: Laboratory Tests 08/23/17 08/23/17 08/23/17 Range/Units 13:40 13:40 13:40 WBC 11.3 H (4.0-10.0) x10^3/uL RBC 3.64 L (4.00-5.50) x10^6/uL Hgb 11.6 L D (12.0-16.0) g/dL Hct 34.1 (33.0-47.0) % MCV 93.7 H D (78.0-93.0) fL MCH 31.9 (26.0-32.0) pg MCHC 34.0 (32.0-36.0) g/dL RDW Coeff of Cyndie 15.8 H (10.0-15.0) % Plt Count 219 (130-400) x10^3/uL Add Manual Diff Yes Neutrophils % (Manual) 76 (50-80) % Band Neutrophils % 1 (0-6) % Lymphocytes % (Manual) 21 L (25-50) % Monocytes % (Manual) 2 (2-11) % Platelet Estimate Adequate Anisocytosis 1+ slight H PT (9.8-11.8) SEC INR (2.0-3.5) APTT (22.0-34.0) SEC POC ABG pH (7.35-7.45) POC ABG pCO2 (35-45) mmHG POC ABG pO2 (80-105) mmHG POC ABG HCO3 (22-26) mmol/L POC ABG Total CO2 (23-27) mmol/L POC ABG O2 Sat (95-98) % POC ABG Base Excess (-2-3) mmol/L POC FiO2 Sodium 123 L* D (136-145) mmol/L Potassium 3.4 L (3.5-5.1) mmol/L Chloride 79 L D (98-107) mmol/L Carbon Dioxide 25 D (21-32) mmol/L BUN 6 L (7-18) mg/dL Creatinine 1.4 H (0.55-1.02) mg/dL Est Cr Clr Drug Dosing TNP Estimated GFR (MDRD) 38 Glucose 226 H (74-106) mg/dL Lactic Acid 13.9 H* (0.4-2.0) mmol/L Calcium 7.6 L (8.5-10.1) mg/dL Corrected Calcium 8.00 L D (8.5-10.1) mg/dL Magnesium 1.3 L (1.8-2.4) mg/dL Total Bilirubin 0.5 (0.2-1.0) mg/dL AST 23 (15-37) U/L ALT 14 (14-59) U/L Alkaline Phosphatase 97 (46-116) U/L POC Troponin I (0.00-0.08) ng/mL NT-Pro-B Natriuret Pep 1627 H (<=125) pg/mL Total Protein 7.1 (6.4-8.2) g/dL Albumin 3.5 (3.4-5.0) g/dL Globulin 3.6 Albumin/Globulin Ratio 0.97 POC Result Comm Urine Color (YELLOW) Urine Appearance (CLEAR) Urine pH (5.0-8.0) Ur Specific [place] Urine Protein (NEGATIVE) mg/dL Urine Glucose (UA) (NEGATIVE) mg/dL Urine Ketones (NEGATIVE) mg/dL Urine Occult Blood (NEGATIVE) Urine Nitrite (NEGATIVE) Urine Bilirubin (NEGATIVE) Urine Urobilinogen (0.2) EU/dL Ur Leukocyte Esterase (NEGATIVE) Urine Opiates Screen (NEGATIVE) Ur Buprenorphine Scrn (NEGATIVE) Ur Oxycodone Screen (NEGATIVE) Urine Methadone Screen (NEGATIVE) Ur Barbiturates Screen (NEGATIVE) Ur Tricyclics Screen (NEGATIVE) Ur Amphetamine Screen (NEGATIVE) U Methamphetamines Scrn (NEGATIVE) Urine MDMA Screen (NEGATIVE) U Benzodiazepines Scrn (NEGATIVE) U Cocaine Metab Screen (NEGATIVE) U Marijuana (THC) Screen (NEGATIVE) 08/23/17 08/23/17 08/23/17 Range/Units 13:40 13:55 14:14 WBC (4.0-10.0) x10^3/uL RBC (4.00-5.50) x10^6/uL Hgb (12.0-16.0) g/dL Hct (33.0-47.0) % MCV (78.0-93.0) fL MCH (26.0-32.0) pg MCHC (32.0-36.0) g/dL RDW Coeff of Cyndie (10.0-15.0) % Plt Count (130-400) x10^3/uL Add Manual Diff Neutrophils % (Manual) (50-80) % Band Neutrophils % (0-6) % Lymphocytes % (Manual) (25-50) % Monocytes % (Manual) (2-11) % Platelet Estimate Anisocytosis PT 11.1 (9.8-11.8) SEC INR 1.0 L (2.0-3.5) APTT 27.5 (22.0-34.0) SEC POC ABG pH 7.185 L* (7.35-7.45) POC ABG pCO2 68 H* (35-45) mmHG POC ABG pO2 469 H (80-105) mmHG POC ABG HCO3 26 (22-26) mmol/L POC ABG Total CO2 27 (23-27) mmol/L POC ABG O2 Sat 100 H (95-98) % POC ABG Base Excess -3 L (-2-3) mmol/L POC FiO2 0.90 Sodium (136-145) mmol/L Potassium (3.5-5.1) mmol/L Chloride (98-107) mmol/L Carbon Dioxide (21-32) mmol/L BUN (7-18) mg/dL Creatinine (0.55-1.02) mg/dL Est Cr Clr Drug Dosing Estimated GFR (MDRD) Glucose (74-106) mg/dL Lactic Acid (0.4-2.0) mmol/L Calcium (8.5-10.1) mg/dL Corrected Calcium (8.5-10.1) mg/dL Magnesium (1.8-2.4) mg/dL Total Bilirubin (0.2-1.0) mg/dL AST (15-37) U/L ALT (14-59) U/L Alkaline Phosphatase (46-116) U/L POC Troponin I 0.01 (0.00-0.08) ng/mL NT-Pro-B Natriuret Pep (<=125) pg/mL Total Protein (6.4-8.2) g/dL Albumin (3.4-5.0) g/dL Globulin Albumin/Globulin Ratio POC Result Comm Called critical res Urine Color (YELLOW) Urine Appearance (CLEAR) Urine pH (5.0-8.0) Ur Specific [place] Urine Protein (NEGATIVE) mg/dL Urine Glucose (UA) (NEGATIVE) mg/dL Urine Ketones (NEGATIVE) mg/dL Urine Occult Blood (NEGATIVE) Urine Nitrite (NEGATIVE) Urine Bilirubin (NEGATIVE) Urine Urobilinogen (0.2) EU/dL Ur Leukocyte Esterase (NEGATIVE) Urine Opiates Screen (NEGATIVE) Ur Buprenorphine Scrn (NEGATIVE) Ur Oxycodone Screen (NEGATIVE) Urine Methadone Screen (NEGATIVE) Ur Barbiturates Screen (NEGATIVE) Ur Tricyclics Screen (NEGATIVE) Ur Amphetamine Screen (NEGATIVE) U Methamphetamines Scrn (NEGATIVE) Urine MDMA Screen (NEGATIVE) U Benzodiazepines Scrn (NEGATIVE) U Cocaine Metab Screen (NEGATIVE) U Marijuana (THC) Screen (NEGATIVE) 08/23/17 08/23/17 Range/Units 14:35 14:35 WBC (4.0-10.0) x10^3/uL RBC (4.00-5.50) x10^6/uL Hgb (12.0-16.0) g/dL Hct (33.0-47.0) % MCV (78.0-93.0) fL MCH (26.0-32.0) pg MCHC (32.0-36.0) g/dL RDW Coeff of Cyndie (10.0-15.0) % Plt Count (130-400) x10^3/uL Add Manual Diff Neutrophils % (Manual) (50-80) % Band Neutrophils % (0-6) % Lymphocytes % (Manual) (25-50) % Monocytes % (Manual) (2-11) % Platelet Estimate Anisocytosis PT (9.8-11.8) SEC INR (2.0-3.5) APTT (22.0-34.0) SEC POC ABG pH (7.35-7.45) POC ABG pCO2 (35-45) mmHG POC ABG pO2 (80-105) mmHG POC ABG HCO3 (22-26) mmol/L POC ABG Total CO2 (23-27) mmol/L POC ABG O2 Sat (95-98) % POC ABG Base Excess (-2-3) mmol/L POC FiO2 Sodium (136-145) mmol/L Potassium (3.5-5.1) mmol/L Chloride (98-107) mmol/L Carbon Dioxide (21-32) mmol/L BUN (7-18) mg/dL Creatinine (0.55-1.02) mg/dL Est Cr Clr Drug Dosing Estimated GFR (MDRD) Glucose (74-106) mg/dL Lactic Acid (0.4-2.0) mmol/L Calcium (8.5-10.1) mg/dL Corrected Calcium (8.5-10.1) mg/dL Magnesium (1.8-2.4) mg/dL Total Bilirubin (0.2-1.0) mg/dL AST (15-37) U/L ALT (14-59) U/L Alkaline Phosphatase (46-116) U/L POC Troponin I (0.00-0.08) ng/mL NT-Pro-B Natriuret Pep (<=125) pg/mL Total Protein (6.4-8.2) g/dL Albumin (3.4-5.0) g/dL Globulin Albumin/Globulin Ratio POC Result Comm Urine Color Light yellow (YELLOW) Urine Appearance Clear (CLEAR) Urine pH 7.0 (5.0-8.0) Ur Specific [place] 1.015 Urine Protein Trace H (NEGATIVE) mg/dL Urine Glucose (UA) 100 H (NEGATIVE) mg/dL Urine Ketones Negative (NEGATIVE) mg/dL Urine Occult Blood Trace-intact H (NEGATIVE) Urine Nitrite Negative (NEGATIVE) Urine Bilirubin Negative (NEGATIVE) Urine Urobilinogen 0.2 (0.2) EU/dL Ur Leukocyte Esterase Negative (NEGATIVE) Urine Opiates Screen Negative (NEGATIVE) Ur Buprenorphine Scrn Negative (NEGATIVE) Ur Oxycodone Screen Negative (NEGATIVE) Urine Methadone Screen Negative (NEGATIVE) Ur Barbiturates Screen Negative (NEGATIVE) Ur Tricyclics Screen Negative (NEGATIVE) Ur Amphetamine Screen Negative (NEGATIVE) U Methamphetamines Scrn Negative (NEGATIVE) Urine MDMA Screen Negative (NEGATIVE) U Benzodiazepines Scrn Negative (NEGATIVE) U Cocaine Metab Screen Negative (NEGATIVE) U Marijuana (THC) Screen Negative (NEGATIVE) Meds: Medications Discontinued Medications Generic Name Dose Route Start Last Admin Trade Name Freq PRN Reason Stop Dose Admin Chlorhexidine Gluconate Confirm 08/23/17 15:07 Peridex 0.12% Rinse Administered 08/23/17 15:08 Dose 15 ml .ROUTE .STK-MED ONE Midazolam HCl Confirm 08/23/17 15:02 Versed 1 Mg/Ml Administered 08/23/17 15:03 Dose 6 mg .ROUTE .STK-MED ONE Rocuronium [place] Confirm 08/23/17 14:44 Zemuron Administered 08/23/17 14:45 Dose 50 mg .ROUTE .STK-MED ONE Rocuronium [place] Confirm 08/23/17 15:03 Zemuron Administered 08/23/17 15:04 Dose 50 mg .ROUTE .STK-MED ONE Sodium Bicarbonate Confirm 08/23/17 15:16 Sodium Bicarbonate 8.4% Administered 08/23/17 15:17 Dose 50 meq .ROUTE .STK-MED ONE Succinylcholine Chloride Confirm 08/23/17 15:03 Quelicin Administered 08/23/17 15:04 Dose 200 mg .ROUTE .STK-MED ONE - Re-Assessments/Exams Free Text/Narrative Re-Assessment/Exam: 08/23/17 15:24 Ambulance did start patient on dopamine drip due to reduced SBP. Started at 5 mcg Departure - Departure Time of Disposition: 14:43 Disposition: DC/Tfer to Acute Hospital 02 Condition: Critical Clinical Impression: Respiratory arrest - Discharge Information Referrals: Amaris Fagan DO [Primary Care Provider] - Forms: Interfacility Transfer EMTALA, ED Department Discharge ED Communication - ED Communication Date/Time Date: 08/23/17 Time Called: 14:00 - Discussed Case With (1) Discussed Case With (1): Admitting Provider (Case discussed with Dr. Travino, power plant inspector at [facility]) - Problem List & Annotations (1) Respiratory arrest SNOMED Code(s): 75109910 Code(s): R09.2 - RESPIRATORY ARREST Status: Acute Priority: High Current Visit: Yes - Problem List Review Problem List Initiated/Reviewed/Updated: No - My Orders Last 24 Hours: My Active Orders 08/23/17 14:00 Chest 1V Frontal [CR] Routine 08/23/17 14:12 Head wo Cont [CT] Stat - Assessment/Plan Last 24 Hours: My Active Orders 08/23/17 14:00 Chest 1V Frontal [CR] Routine 08/23/17 14:12 Head wo Cont [CT] Stat Plan: Transfer to ICU [facility] with Dr. Carter accepting care.
[2017-08-23] MEDS ORDERED: Chlorhexidine Gluconate 0.12% Oral Rinse 15 ML Cup ONE (15:07)
[2017-08-23] MEDS ORDERED: Sodium Chloride 0.9% 10 ML Syringe FLUSH PRN (17:01)
== END 2017-08-23 14:43 | disposition short-term general hospital (02) ==
LOC: VM.ED 13:36
DX: R09.2 Respiratory arrest (principal); I11.0 Hypertensive heart disease with heart failure; I50.9 Heart failure, unspecified; E78.00 Pure hypercholesterolemia, unspecified; J44.9 Chronic obstructive pulmonary disease, unspecified; I42.9 Cardiomyopathy, unspecified; F17.210 Nicotine dependence, cigarettes, uncomplicated; Z88.5 Allergy status to narcotic agent; Z91.09 Other allergy status, other than to drugs and biological substances; Z79.82 Long term (current) use of aspirin; Z79.899 Other long term (current) drug therapy; Z95.1 Presence of aortocoronary bypass graft
CPT/HCPCS: 31500; 36415; 36600; 51702; 70450; 71045; 80053; 80305; 81003; 82803; 83605; 83735; 83880; 84484; 85025; 85610; 85730; 93005; 96360; 96361; 96374; 96375; 99291; J0330; J2250; J7030

== ENCOUNTER 2017-10-02 19:08 | Emergency (ER) | payer BC, MEDICARE ==
[2017-10-02] MEDS ORDERED: Sodium Chloride 0.9% 10 ML Syringe FLUSH PRN (19:10)
[2017-10-02] MEDS ORDERED: Sodium Chloride 0.9% 1,000 ML IV ONE (19:11)
--- NOTE | 2017-10-02 19:45 | EDM.PDOC ---
ED HPI GENERAL MEDICAL PROBLEM - General Chief Complaint: General Stated Complaint: "wobbly", low sodium low potassium Time Seen by Provider: 10/02/17 19:10 Source of Information: Reports: Patient, Family, Old Records, RN, RN Notes Reviewed History Limitations: Reports: No Limitations - History of Present Illness INITIAL COMMENTS - FREE TEXT/NARRATIVE: Patient presents the emergency room at [facility] stating that she feels very wobbly and lethargic. The patient also states that she was called by her clinic today stating that she is a seen in emergency room because her electrolytes were abnormal. The patient states she feels weak and unsteady on her feet. The patient denies any recent falls. The patient denies any chest pain or shortness of breath. The patient has a long-standing history of COPD secondary cigarette smoking. The patient does consume alcohol on a daily basis. The patient denies any nausea vomiting or diarrhea. The patient denies any focal neurological deficits. Patient states she did take 2 Lorazepam tablets prior to coming into the ER. She does not remember the dose. Office visit notes and labs reviewed from [facility]. According to records, patient did have a low blood pressure of 70's/40's and a Sodium of 118 and Magnesium of 0.9 yesterday. Onset: Unknown/Unsure - Related Data Allergies Allergy/AdvReac Type Severity Reaction Status Date / Time codeine AdvReac Vomiting Verified 10/02/17 19:11 bandaids Allergy Rash Uncoded 10/02/17 19:11 Home Meds: Home Meds Albuterol [Ventolin HFA] 2 puff INH Q4HR PRN 08/16/13 [History] Furosemide 40 mg PO DAILY 08/16/13 [History] Aspirin [Halfprin] 81 mg PO DAILY #1 tab.ec 08/20/13 [Rx] Carvedilol 25 mg PO BID #1 08/20/13 [Rx] Albuterol/Ipratropium [DuoNeb 3.0-0.5 MG/3 ML] 3 ml NEB Q4HRRT PRN 01/06/16 [ History] Nitroglycerin [Nitrostat] 0.4 mg SL Q5M PRN 01/06/16 [History] Omeprazole 20 mg PO DAILY@0700 cap.cr 07/27/16 [Rx] Simvastatin [Zocor] 40 mg PO BEDTIME tablet 07/27/16 [Rx] Aclidinium [place] [Tudorza Pressair] 1 puff IH BID 04/25/17 [History] Escitalopram [Lexapro] 20 mg PO DAILY 04/25/17 [History] Furosemide [Lasix] 20 mg PO DAILY 04/25/17 [History] LORazepam 1 mg PO DAILY PRN 04/25/17 [History] LORazepam [Ativan] 2 mg PO BEDTIME 04/25/17 [History] Budesonide [Pulmicort] 0.5 mg NEB BID 10/02/17 [History] Folic Acid 1 mg PO DAILY 10/02/17 [History] Magnesium Chloride [Mag-64] 64 mg PO BID 10/02/17 [History] Potassium Chloride [Klor-Con 10] 20 meq PO DAILY 10/02/17 [History] Past Medical History HEENT History: Reports: None Cardiovascular History: Reports: CAD, Cardiomyopathy, Heart Failure, High Cholesterol, Hypertension, [place] Respiratory History: Reports: COPD Other Respiratory History: pt uses home O2 at 1L NC throughout day. 2L at night Gastrointestinal History: Reports: Other (See Below) Other Gastrointestinal History: reports that she has been having bloody stools ( BRB) is scheduled for colonoscopy SundayJanuary 09 Genitourinary History: Reports: None EXTENSION WORKER History: Reports: None Musculoskeletal History: Reports: None Neurological History: Reports: None Psychiatric History: Reports: Depression Endocrine/Metabolic History: Reports: None Hematologic History: Other Hematologic History: hepatitis Immunologic History: Reports: None Oncologic (Cancer) History: Reports: None Dermatologic History: Reports: None - Infectious Disease History Infectious Disease History: Reports: Other (See Below) Other Infectious Disease History: hx of hepatitis but does not know which one - Past Surgical History Head Surgeries/Procedures: Reports: None HEENT Surgical History: Reports: None Female Surgical History: Reports: Hysterectomy Endocrine Surgical History: Reports: None Neurological Surgical History: Reports: None Musculoskeletal Surgical History: Reports: Other (See Below) Other Musculoskeletal Surgeries/Procedures:: right humerous fx Oncologic Surgical History: Reports: None Dermatological Surgical History: Reports: None Social & Family History - Family History Family Medical History: Noncontributory - Tobacco Use Smoking Status *Q: Current Every Day Smoker Years of Tobacco use: 39 Packs/Tins Daily: 0.7 Second Hand Smoke Exposure: Yes - Caffeine Use Caffeine Use: Reports: Coffee - Alcohol Use Days Per Week of Alcohol Use: 7 Number of Drinks Per Day: 5 Total Drinks Per Week: 35 - Recreational Drug Use Recreational Drug Use: No - Living Situation & Occupation Living situation: Reports: Occupation: Employed ED ROS GENERAL - Review of Systems Review Of Systems: See Below Constitutional: Reports: Weakness, Fatigue, Decreased Appetite (chronic). Denies: Fever, Chills Respiratory: Denies: Shortness of Breath, Cough Cardiovascular: Reports: Dyspnea on Exertion (chronic). Denies: Chest Pain, Palpitations GI/Abdominal: Denies: Abdominal Pain, Nausea, Vomiting Skin: Reports: No Symptoms Neurological: Reports: Dizziness, Difficulty Walking, Gait Disturbance. Denies : Headache, Numbness, Paresthesia, Tingling ED EXAM, GENERAL - Physical Exam Exam: See Below Exam Limited By: No Limitations General Appearance: Alert, No Apparent Distress Head: Atraumatic, Normocephalic Neck: Supple Respiratory/Chest: Decreased Breath Sounds, Wheezing (end expiratory) Cardiovascular: Normal Peripheral Pulses, Regular Rate, Rhythm Peripheral Pulses: 2+: Radial (L), Radial (R) GI/Abdominal: Soft, Non-Tender, Abnormal Bowel Sounds (Hypoactive) Neurological: Alert, Oriented, Slow to Respond Skin Exam: Warm, Dry, Intact, Jaundice EKG INTERPRETATION EKG Date: 10/02/17 Time: 19:37 Rhythm: NSR Rate (Beats/Min): 57 [place]: Normal P-Wave: Present QRS: Normal ST-T: Normal QT: Normal UT/PQ Interval: 0.14 Comparison: No Change EKG Interpretation Comments: 1. Sinus Bradycardia 2. IWMI, of indeterminate age Course - Vital Signs Last Recorded V/S: Last Vital Signs Temp 35.5 C 10/02/17 20:49 Pulse 64 10/02/17 20:49 Resp 18 10/02/17 19:11 BP 96/52 L 10/02/17 20:49 Pulse Ox 95 10/02/17 20:49 - Orders/Labs/Meds Orders: Active Orders 24 hr Category Date Time Status EKG 12 Lead [EKG Documentation Completion] [RC] STAT Care 10/02/17 19:11 Active Chest 2V [CR] Stat Exams 10/02/17 19:10 Taken CULTURE BLOOD [BC] Stat Lab 10/02/17 19:46 Received CULTURE BLOOD [BC] Stat Lab 10/02/17 19:54 Results Potassium Chloride [KCL 20 MEQ in Water 50 ML] 20 meq Med 10/02/17 21:10 Ordered Premix Bag 1 bag IV ONETIME Sodium Chloride 0.9% [Saline Flush] Med 10/02/17 19:10 Active 10 ml FLUSH ASDIRECTED PRN Blood Culture x2 Reflex Set [OM.PC] Stat Oth 10/02/17 19:20 Ordered Peripheral IV Insertion Adult [OM.PC] Routine Oth 10/02/17 19:10 Ordered Medication Orders Sodium Chloride (Saline Flush) 10 ml FLUSH ASDIRECTED PRN PRN Reason: Keep Vein Open Labs: Laboratory Tests 10/02/17 10/02/17 10/02/17 Range/Units 19:46 19:46 19:46 WBC 6.3 (4.0-10.0) x10^3/uL RBC 2.92 L (4.00-5.50) x10^6/uL Hgb 9.6 L D (12.0-16.0) g/dL Hct 26.7 L (33.0-47.0) % MCV 91.4 (78.0-93.0) fL MCH 32.9 H (26.0-32.0) pg MCHC 36.0 (32.0-36.0) g/dL RDW Coeff of Cyndie 12.6 (10.0-15.0) % Plt Count 169 (130-400) x10^3/uL Neut % (Auto) 59.8 (50.0-80.0) % Lymph % (Auto) 29.5 (25.0-50.0) % [place] % (Auto) 8.8 (2.0-11.0) % Eos % (Auto) 1.6 (0.0-4.0) % Baso % (Auto) 0.3 (0.2-1.2) % Sodium 117 L* (136-145) mmol/L Potassium 2.9 L* (3.5-5.1) mmol/L Chloride 78 L (98-107) mmol/L Carbon Dioxide 31 (21-32) mmol/L BUN 10 (7-18) mg/dL Creatinine 1.1 H (0.55-1.02) mg/dL Est Cr Clr Drug Dosing TNP Estimated GFR (MDRD) 50 Glucose 86 (74-106) mg/dL Lactic Acid (0.4-2.0) mmol/L Calcium 7.7 L (8.5-10.1) mg/dL Corrected Calcium 8.66 (8.5-10.1) mg/dL Phosphorus 2.7 (2.6-4.7) mg/dL Magnesium 1.1 L (1.8-2.4) mg/dL Total Bilirubin 0.5 (0.2-1.0) mg/dL AST 28 (15-37) U/L ALT 15 (14-59) U/L Alkaline Phosphatase 78 (46-116) U/L Creatine Kinase 116 (26-192) U/L Troponin I < 0.017 (<=0.056) ng/mL C-Reactive Protein < 0.2 (<=0.9) mg/dL NT-Pro-B Natriuret Pep 718 H (<=125) pg/mL Total Protein 5.8 L (6.4-8.2) g/dL Albumin 2.8 L (3.4-5.0) g/dL Globulin 3.0 Albumin/Globulin Ratio 0.93 Urine Color (YELLOW) Urine Appearance (CLEAR) Urine pH (5.0-8.0) Ur Specific [place] Urine Protein (NEGATIVE) mg/dL Urine Glucose (UA) (NEGATIVE) mg/dL Urine Ketones (NEGATIVE) mg/dL Urine Occult Blood (NEGATIVE) Urine Nitrite (NEGATIVE) Urine Bilirubin (NEGATIVE) Urine Urobilinogen (0.2) EU/dL Ur Leukocyte Esterase (NEGATIVE) Urine RBC (NOT SEEN) /HPF Urine WBC (NOT SEEN) /HPF Ur Squamous Epith Cells (NEGATIVE) /HPF Urine Bacteria (NEGATIVE) /HPF Urine Mucus (NEGATIVE) /LPF Urine Opiates Screen (NEGATIVE) Ur Buprenorphine Scrn (NEGATIVE) Ur Oxycodone Screen (NEGATIVE) Urine Methadone Screen (NEGATIVE) Ur Barbiturates Screen (NEGATIVE) Ur Tricyclics Screen (NEGATIVE) Ur Amphetamine Screen (NEGATIVE) U Methamphetamines Scrn (NEGATIVE) Urine MDMA Screen (NEGATIVE) U Benzodiazepines Scrn (NEGATIVE) U Cocaine Metab Screen (NEGATIVE) U Marijuana (THC) Screen (NEGATIVE) Ethyl Alcohol 21 H (0-3) mg/dL 10/02/17 10/02/17 10/02/17 Range/Units 19:54 20:43 20:43 WBC (4.0-10.0) x10^3/uL RBC (4.00-5.50) x10^6/uL Hgb (12.0-16.0) g/dL Hct (33.0-47.0) % MCV (78.0-93.0) fL MCH (26.0-32.0) pg MCHC (32.0-36.0) g/dL RDW Coeff of Cyndie (10.0-15.0) % Plt Count (130-400) x10^3/uL Neut % (Auto) (50.0-80.0) % Lymph % (Auto) (25.0-50.0) % [place] % (Auto) (2.0-11.0) % Eos % (Auto) (0.0-4.0) % Baso % (Auto) (0.2-1.2) % Sodium (136-145) mmol/L Potassium (3.5-5.1) mmol/L Chloride (98-107) mmol/L Carbon Dioxide (21-32) mmol/L BUN (7-18) mg/dL Creatinine (0.55-1.02) mg/dL Est Cr Clr Drug Dosing Estimated GFR (MDRD) Glucose (74-106) mg/dL Lactic Acid 4.1 H* (0.4-2.0) mmol/L Calcium (8.5-10.1) mg/dL Corrected Calcium (8.5-10.1) mg/dL Phosphorus (2.6-4.7) mg/dL Magnesium (1.8-2.4) mg/dL Total Bilirubin (0.2-1.0) mg/dL AST (15-37) U/L ALT (14-59) U/L Alkaline Phosphatase (46-116) U/L Creatine Kinase (26-192) U/L Troponin I (<=0.056) ng/mL C-Reactive Protein (<=0.9) mg/dL NT-Pro-B Natriuret Pep (<=125) pg/mL Total Protein (6.4-8.2) g/dL Albumin (3.4-5.0) g/dL Globulin Albumin/Globulin Ratio Urine Color Dark yellow H (YELLOW) Urine Appearance Cloudy H (CLEAR) Urine pH 5.5 (5.0-8.0) Ur Specific [place] 1.010 Urine Protein Negative (NEGATIVE) mg/dL Urine Glucose (UA) Negative (NEGATIVE) mg/dL Urine Ketones Negative (NEGATIVE) mg/dL Urine Occult Blood Trace-intact H (NEGATIVE) Urine Nitrite Negative (NEGATIVE) Urine Bilirubin Negative (NEGATIVE) Urine Urobilinogen 0.2 (0.2) EU/dL Ur Leukocyte Esterase Negative (NEGATIVE) Urine RBC 0-5 (NOT SEEN) /HPF Urine WBC 5-10 H (NOT SEEN) /HPF Ur Squamous Epith Cells Many H (NEGATIVE) /HPF Urine Bacteria Few H (NEGATIVE) /HPF Urine Mucus Few H (NEGATIVE) /LPF Urine Opiates Screen Negative (NEGATIVE) Ur Buprenorphine Scrn Negative (NEGATIVE) Ur Oxycodone Screen Negative (NEGATIVE) Urine Methadone Screen Negative (NEGATIVE) Ur Barbiturates Screen Negative (NEGATIVE) Ur Tricyclics Screen Negative (NEGATIVE) Ur Amphetamine Screen Negative (NEGATIVE) U Methamphetamines Scrn Negative (NEGATIVE) Urine MDMA Screen Negative (NEGATIVE) U Benzodiazepines Scrn Negative (NEGATIVE) U Cocaine Metab Screen Negative (NEGATIVE) U Marijuana (THC) Screen Negative (NEGATIVE) Ethyl Alcohol (0-3) mg/dL Meds: Medications Generic Name Dose Route Start Last Admin Trade Name Freq PRN Reason Stop Dose Admin Sodium Chloride 10 ml 10/02/17 19:10 Saline Flush FLUSH ASDIRECTED PRN Keep Vein Open Discontinued Medications Generic Name Dose Route Start Last Admin Trade Name Freq PRN Reason Stop Dose Admin Sodium Chloride 1,000 mls @ 999 mls/hr 10/02/17 19:11 10/02/17 19:32 Normal Saline IV 10/02/17 20:11 999 mls/hr ONETIME ONE Administration - Radiology Interpretation Free Text/Narrative:: CXR: No acute findings in the chest - see scanned report in EMR Departure - Departure Time of Disposition: 21:16 Disposition: DC/Tfer to Acute Hospital 02 Condition: Fair Clinical Impression: Hyponatremia, Hypomagnesemia, Hypokalemia, COPD mixed type, Congestive heart failure due to left ventricular systolic dysfunction, HTN, Benign hypertension - Discharge Information Forms: Interfacility Transfer [facility] ED Communication - ED Communication Date/Time Date: 10/02/17 Time Called: 21:06 - Discussed Case With (1) Discussed Case With (1): Admitting Provider (Dr. Healy, Hospitalist. Report given. Patient accepted in transferred. Patient will be sent ALS ground to [facility].) - Conversation Summary Admitting Provider Agreed to Patient's Admission: Yes Patient Aware of Amendments fo Care Plan: Yes - Problem List Review Problem List Initiated/Reviewed/Updated: Yes - My Orders Last 24 Hours: My Active Orders 10/02/17 19:10 Chest 2V [CR] Stat Sodium Chloride 0.9% [Saline Flush] 10 ml FLUSH ASDIRECTED PRN Peripheral IV Insertion Adult [OM.PC] Routine 10/02/17 19:11 EKG 12 Lead [EKG Documentation Completion] [RC] STAT 10/02/17 19:20 Blood Culture x2 Reflex Set [OM.PC] Stat 10/02/17 19:46 CULTURE BLOOD [BC] Stat 10/02/17 19:54 CULTURE BLOOD [BC] Stat 10/02/17 21:10 Potassium Chloride [KCL 20 MEQ in Water 50 ML] 20 meq Premix Bag 1 bag IV ONETIME - Assessment/Plan Last 24 Hours: My Active Orders 10/02/17 19:10 Chest 2V [CR] Stat Sodium Chloride 0.9% [Saline Flush] 10 ml FLUSH ASDIRECTED PRN Peripheral IV Insertion Adult [OM.PC] Routine 10/02/17 19:11 EKG 12 Lead [EKG Documentation Completion] [RC] STAT 10/02/17 19:20 Blood Culture x2 Reflex Set [OM.PC] Stat 10/02/17 19:46 CULTURE BLOOD [BC] Stat 10/02/17 19:54 CULTURE BLOOD [BC] Stat 10/02/17 21:10 Potassium Chloride [KCL 20 MEQ in Water 50 ML] 20 meq Premix Bag 1 bag IV ONETIME Assessment:: Severe Hyponatremia Hypomagnesemia Lethargy Lactic Acidosis Low Hemoglobin Plan: Case was discussed with Dr. Healy, Hospitalist [facility]. Patient will be given 20 mEq of IV potassium prior to transfer. [facility] will supplement the patient's magnesium when she is admitted at their facility. The full report was given to the accepting provider. All questions answered. The patient will be transferred via ALS ground.
[2017-10-02 20:45] LABS: CHLORIDE,CL 78 mmol/L (98-107)
[2017-10-02 20:47] LABS: SODIUM,NA 117 mmol/L (136-145)
[2017-10-02 20:50] VITALS: BP 96/52
[2017-10-02] MEDS ORDERED: Potassium Chloride 20 MEQ in Premix Bag 1 BAG IV ONE (21:10)
== END 2017-10-02 21:56 | disposition short-term general hospital (02) ==
LOC: VM.ED 19:08
DX: I11.0 Hypertensive heart disease with heart failure (principal); I50.20 Unspecified systolic (congestive) heart failure; E87.6 Hypokalemia; E83.42 Hypomagnesemia; E87.1 Hypo-osmolality and hyponatremia; J44.9 Chronic obstructive pulmonary disease, unspecified; D64.9 Anemia, unspecified; E87.2 Acidosis; E78.00 Pure hypercholesterolemia, unspecified; F17.210 Nicotine dependence, cigarettes, uncomplicated; Z88.5 Allergy status to narcotic agent; Z79.82 Long term (current) use of aspirin; Z79.899 Other long term (current) drug therapy
CPT/HCPCS: 36415; 71046; 80053; 80305; 81001; 82550; 83605; 83735; 83880; 84100; 84484; 85025; 86140; 87040; 93005; 96361; 96365; 99285; G0480; J3480; J7030